=== PATIENT | female | born 1995 | race Caucasian/White ===

== ENCOUNTER 2022-11-21 14:35 | Outpatient (OUT) | payer BC, SELFPAY ==
[2022-11-21 15:12] LABS: Basophils Percent Auto 0.4 % (0.2-2.0); Eosinophils Absolute Auto 0.1 10^3/uL (0.0-0.7); Eosinophils Percent Auto 1.3 % (0.9-7.0); Hematocrit 39.5 % (36.0-48.0); Hemoglobin 12.5 g/dL (12.0-16.0); Immature Granulocytes Abs Auto 0.02 10^3/uL (0.00-0.03); Immature Granulocytes Pct Auto 0.3 % (0.0-0.5); Lymphocytes Absolute Auto 2.8 10^3/uL (1.2-3.8); Lymphocytes Percent Auto 40.1 % (20.5-60.0); Mean Corpuscular HGB Conc 31.6 g/dL (29.9-35.2); Mean Corpuscular Hemoglobin 24.6 pg (26.7-34.0); Mean Corpuscular Volume 77.8 fL (81.0-99.0); Mean Platelet Volume 9.6 fL (9.5-13.5); Monocytes Absolute Auto 0.4 10^3/uL (0.3-0.8); Monocytes Percent Auto 5.5 % (1.7-12.0); Neutrophils Absolute Auto 3.7 10^3/uL (1.4-6.5); Neutrophils Percent Auto 52.4 % (43.0-75.0); Platelet Count 355 10^3/uL (150-450); Red Blood Count 5.08 10^6/uL (4.20-5.40); Red Cell Distribution Width 13.5 % (11.0-15.0); White Blood Count 7.1 10^3/uL (4.0-11.0)
[2022-11-21 15:20] LABS: Estimated Average Glucose 94 mg/dL; Glycohemoglobin A1C 4.9 % (4.5-6.2)
[2022-11-21 15:51] LABS: Free T4 1.11 ng/dL (0.76-1.46)
[2022-11-21 15:54] LABS: HCG Quantitative <1 mIU/mL; Thyroid Stimulating Hormone 1.545 uIU/mL (0.358-3.740)
[2022-11-22 04:08] LABS: DHEA-Sulfate 91.8 ug/dL (84.8-378.0); FSH 7.1 mIU/mL (.); Luteinizing Hormone(LH) 12.9 mIU/mL (.)
[2022-11-27 21:09] LABS: DHEA, Serum 168 ng/dL (31-701)
== END 2022-11-21 14:36 | disposition home or self-care (01) ==
LOC: LAB 14:41
PROVIDERS: Visit Provider Physician Assistant
DX: E28.2 Polycystic ovarian syndrome (principal); Z12.4 Encounter for screening for malignant neoplasm of cervix; Z11.51 Encounter for screening for human papillomavirus (HPV)
CPT/HCPCS: 36415; 82626; 82627; 83001; 83002; 83036; 84439; 84443; 84702; 85025; G0145

== ENCOUNTER 2022-11-21 19:36 | Outpatient (REF) | payer BC, SELFPAY ==
[2022-11-26 10:08] LABS: Age Gdln ACOG Testing Note (.); IGP, rfx Aptima HPV ASCU Note (.)
== END 2022-11-21 19:37 | disposition home or self-care (01) ==
LOC: LAB 19:36
PROVIDERS: Visit Provider Physician Assistant
DX: Z12.4 Encounter for screening for malignant neoplasm of cervix (principal); Z11.51 Encounter for screening for human papillomavirus (HPV)
CPT/HCPCS: G0145

== ENCOUNTER 2022-12-09 10:41 | Outpatient (OUT) | payer BC, SELFPAY ==
--- NOTE | 2022-12-09 10:54 | US_ITS ---
[address] [address] Patient Name: JASMYN ESPAÑA MRN: [id number] date: 1995 Sex: F Assigned Patient Location: US Current Patient Location: US Accession/Order Number: [id number] Exam Date: 12/09/2022 10:56 Report Date: 12/09/2022 12:57 At the request of: DANIEL CABRAL Procedure: US pelvis transvaginal EXAMINATION: US pelvis transvaginal HISTORY: Polycystic Ovarian Syndrome E28.2 COMPARISON: No relevant comparison available. TECHNIQUE: Transabdominal and/or transvaginal sonographic examination was performed as indicated by examination type. FINDINGS: UTERUS: Normal size and appearance of uterine body. Several nabothian cysts within the cervix. Uterus size: 5.9 x 3.4 x 2.3 cm. ENDOMETRIUM: Normal homogeneous appearance. Endometrial thickness: 10 mm RIGHT OVARY: Small ovary without appreciably increased number of follicles. Duplex Doppler demonstrates normal waveform and flow; resistive index 0.4. Ovary size: 1.7 x 1.3 x 1.1 cm LEFT OVARY: Small ovary without appreciably increased number of follicles. Duplex Doppler demonstrates normal waveform and flow; resistive index 0.5. Ovary size: 1.8 x 1.7 x 1.5 cm CUL-DE-SAC: Unremarkable. No significant free fluid. BLADDER: Unremarkable. OTHER: None. US/US pelvis transvaginal IMPRESSION: 1. Small bilateral ovaries without increased number or enlarged follicles. 2. Unremarkable uterus. Electronically authenticated by: SHANICE WASHINGTON Date: 12/09/2022 12:57
== END 2022-12-09 10:42 | disposition home or self-care (01) ==
LOC: US 10:41
PROVIDERS: Visit Provider Physician Assistant
DX: E28.2 Polycystic ovarian syndrome (principal)
CPT/HCPCS: 76830

== ENCOUNTER 2023-05-07 18:23 | Emergency (ER) | payer BC, SELFPAY ==
[2023-05-07 18:37] VITALS: BP 150/87; PULSE 96; RESP 20; TEMP 36.8; O2SAT 97; BMI 41.2
[2023-05-07 19:17] LABS: Internal Control Within Normal Limits; Strep A Antigen Screen Negative
--- NOTE | 2023-05-07 20:43 | ED.URI1 ---
HPI - URI/Sore Throat General Chief Complaint: Upper Respiratory Infection Stated Complaint: Sore Throat Time Seen by Provider: 05/07/23 19:26 Source: patient Limitations: no limitations History of Present Illness HPI Narrative: Patient is a 28-year-old female who presents to the emergency department for a 5-day history of hoarse voice, cough, congestion. She reports some diarrhea but has had no fevers. No vomiting. No sick contacts in the home. She is not concerned for . She has had no difficulty swallowing. No medications taken prior to arrival. Related Data Previous Rx's Medication Instructions Recorded azithromycin 250 mg tablet See Rx Instructions PO .COMPLEX #6 05/07/23 (Zithromax Z-Sunday) tabs [id number]-znibecsgbxzjyol-HB 10 ml PO Q6H PRN cold symptoms 05/07/23 2 mg-30 mg-10 mg/5 mL oral syrup #200 mL (Bromfed DM) Allergies Allergy/AdvReac Type Severity Reaction Status Date / Time Sulfa (Sulfonamide Allergy Severe Verified 05/07/23 18:37 Antibiotics) Review of Systems ROS Constitutional Denies: fever or chills Ears, nose, mouth, and throat Reports: throat pain, hoarseness and nasal congestion Cardiovascular Denies: chest pain Respiratory Reports: cough; Denies: shortness of breath Gastrointestinal Reports: diarrhea; Denies: nausea or vomiting Musculoskeletal Denies: back pain Integumentary/Breast Denies: rash Neurological Denies: headache Hematologic/Lymphatic Denies: easy bruising PFSH PFSH Social History Smoking status: Never smoker Exam Narrative Exam Narrative: Gen.: Awake, alert, in no distress Head: Normocephalic, atraumatic ENT: Moist mucous membranes, bilateral TMs clear. Hoarse voice noted with no pharyngeal erythema, no tonsillar edema or exudate. Uvula midline. Airway widely open and patent. Respiratory: No respiratory distress, lungs clear bilaterally Cardio: Regular rate and rhythm Extremities: Moves extremities equally Psych: Normal mood and affect Neuro: No focal neuro deficit Skin: Warm, dry, intact Constitutional Vital Signs, click to edit/add: Last Vital Signs Temp 98.2 F 05/07/23 18:37 Pulse 96 H 05/07/23 18:37 Resp 20 05/07/23 18:37 BP 150/87 H 05/07/23 18:37 Pulse Ox 97 05/07/23 18:37 O2 Del Method Room Air 05/07/23 18:37 Course Vital Signs Vital signs: Vital Signs Temperature 98.2 F 05/07/23 18:37 Pulse Rate 96 H 05/07/23 18:37 Respiratory Rate 20 05/07/23 18:37 Blood Pressure 150/87 H 05/07/23 18:37 Pulse Oximetry 97 05/07/23 18:37 Oxygen Delivery Method Room Air 05/07/23 18:37 Temperature 98.2 F 05/07/23 18:37 Pulse Rate 96 H 05/07/23 18:37 Respiratory Rate 20 05/07/23 18:37 Blood Pressure 150/87 H 05/07/23 18:37 Pulse Oximetry 97 05/07/23 18:37 Oxygen Delivery Method Room Air 05/07/23 18:37 MDM - URI/Sore Throat MDM Narrative Medical decision making narrative: Patient treated with azithromycin, Bromfed-DM. Decadron given in the ER and the patient is discharged home with upper respiratory instructions. Follow-up with PCP and return to the emergency department if symptoms change or worsen. Medical Records Attestation: I reviewed the patient's medical records. Lab Data Attestation: I reviewed the patient's lab results. Labs: Lab Results 05/07/23 Range/Units 18:44 Streptococcus Screen Negative Discharge Plan Discharge Chief Complaint: Upper Respiratory Infection Clinical Impression: Upper respiratory infection, Laryngitis Patient Disposition: Home, Self-Care Time of Disposition Decision: 20:40 Condition: Good Prescriptions / Home Meds: New azithromycin [Zithromax Z-Sunday] 250 mg tablet See Rx Instructions .ROUTE .COMPLEX Qty: 6 0RF Rx Instructions: For 250 mg dose pack: take 500 mg today (day 1), then 250 mg for 4 days (days 2-5) [id number]-xketypqvx-ZJ [Bromfed DM] 2-30-10 mg/5 mL syrup 10 ml PO Q6H PRN (Reason: cold symptoms) Qty: 200 0RF Instructions: Upper Respiratory Infection (ED) Stand Alone Forms: Portal Instructions Referrals: Physician,Non-Staff, MD [Primary Care Provider] - 1 week Discharge Date/Time: 05/07/23 21:09
[2023-05-07] MEDS: DEXAMETHASONE SOD PHOS 10 MG/ML VIAL PO (21:07)
== END 2023-05-07 21:09 | disposition home or self-care (01) ==
PROVIDERS: Emergency Medicine; Emergency Provider Emergency Medicine
DX: J06.9 Acute upper respiratory infection, unspecified (principal); J04.0 Acute laryngitis
CPT/HCPCS: 87070; 87880; 99283; J1100

== ENCOUNTER 2023-08-08 11:08 | Outpatient (OUT) | payer BC, SELFPAY ==
--- OUTSIDE RECORDS SUMMARY | 2023-08-08 11:12 | XMS_ITS | CCD ---
Author Name Unknown Address [address] [place] [address] Organization [facility] Care Team Providers Care Inserting Operator Name Role Phone Markel White Primary Care Provider [phone] MU PARRA Referring Unavailable MARKEL WHITE Primary Care Unavailable MU PARRA Referring Unavailable MARKEL WHITE Primary Care Unavailable MARKEL WHITE Primary Care Unavailable MARKEL WHITE Primary Care Unavailable MU PARRA Referring Unavailable NALORETTA DARRICK Abelino Admitting Unavailable NAZEANDREA DARRICK I Attending Unavailable MARILYNN WHITESSICA Wilbert Primary Care Unavailable Allergies Allergy Classification Reported Allergen(s) Allergy Type Date of Onset Reaction(s) Facility (6 sources) Lactose (non-medical use) Propensity to adverse reactions to drug 02-20-2015 [place] (6 sources) Sulfonamides (Antibiotic) Propensity to adverse reactions to drug 05-09-2011 [place] Medications Current Medications Medication Drug Class(es) Dates Sig (Normalized) Sig (Original) ethinyl estradiol 0.035 mg / norgestimate 0.25 mg oral tablet (3 sources) Progestin, Estrogen Start: 12-29-2019 take 1 tablet by mouth once daily, then take 0.25-35 tablets by mouth once norgestimate-ethi nyl estradiol (ORTHO-CYCLEN) 0.25-35 MG-MCG per tablet 1 by mouth daily 84 tablet 3 12/29/2019 Active Start: 07-05-2019 take 1 tablet by parth th once daily, then take 0.25-35 tablets by mouth once norgestimate-ethinyl estradiol (MONO-LINYAH) 0.25-35 MG-MCG per tablet Take 1 tablet by mouth daily 84 tablet 1 07/05/2019 Active ibuprofen 600 mg oral tablet (1 source) Nonsteroidal Anti-inflammatory Drug Start: 12-12-2017 take 1 tablet by mouth every six hours as needed for pain ibuprofen (ADVIL;MOTRIN) 600 MG tablet Take 1 tablet by mouth every 6 hours as needed for Pain 30 tablet 0 12/12/2017 Active 1 ml morphine sulfate 2 mg/ml cartridge (2 sources) Opioid Agonist Start: 2022 morphine (PF) injection 2 mg Start: 2022 End: 2022 morphine injection 4 mg ondansetron 4 mg oral tablet (3 sources) Serotonin-3 Receptor Antagonist Start: 03-29-2022 take 1 tablet by mouth every eight hours as needed for nausea ondansetron (ZOFRAN) 4 MG tablet Take 1 tablet by mouth every 8 hours as needed for Nausea or Vomiting 15 tablet 0 03/29/2022 Active Start: 2022 End: 2022 ondansetron (ZOFRAN) injecti on 4 mg piperacillin-tazobactam (ZOS YN) 3,375 mg in dextrose 5 % 50 mL IVPB (mini-bag) (2 sources) Start: 2022 piperacillin-t azobactam (ZOSYN) 3,375 mg in dextrose 5 % 50 mL IVPB (mini-bag) Start: 2022 End: 2022 piperacillin-tazobactam (ZOS YN) 3,375 mg in dextrose 5 % 50 mL IVPB (mini-bag) 1000 ml sodium chloride 9 mg /ml injection (2 sources) Start: 03-29-2022 0.9 % sodium c hloride infusion Start: 2022 End: 2022 0.9 % sodium chloride bolus Completed/Discontinued Medications Medication Drug Class(es) Dates Sig (Normalized) Sig (Original) acetaminophen 325 mg oral tablet (1 source) Start: 03-29-2022 End: 03-29-2022 acetaminophen (TYLENOL) tablet 650 mg acetaminophen 325 mg / HYDROcodone bitartrate 5 mg oral tablet (2 sources) Opioid Agonist Start: 03-29-2022 End: 04-05-2022 take 1 tablet by mouth every four hours as needed 1 tablet, Oral, EVERY 4 HOURS PRN, Starting on Fri03/29/22 at 1820, Until Discontinued, Pain Severe (7-10), Pain Moderate (4-6) Maximum dose of acetaminophen is 4000 mg from all sources in 24 hours. dimenhyDRINATE 50 mg oral tablet (1 source) Start: 03-29-2022 End: 03-29-2022 dimenhyDRINATE (DRAMAMINE) tablet 50 mg docusate sodium 100 mg oral capsule (1 source) Start: 03-29-2022 take 100 mg by mouth once daily 100 mg, Oral, DAILY, First dose on Fri03/29/22 at 1845, Until Discontinued Do not crush or break. iopamidol (ISOVUE-370) 76 % injection 75 mL (1 source) Start: 2022 End: 2022 iopamidol (ISOVUE-370) 76 % injection 75 mL Problems Active Problems Problem Classification Problem Date Documented Date Episodic/Chronic Abdominal pain (8 sources) Right lower quadrant pain; Translations: [Right lower quadrant pain] Onset: 2022 Episodic Appendicitis and other appendiceal conditions (8 sources) Appendicitis; Translations: [Unspecified appendicitis] Onset: 2022 2022 Episodic Cancer of cervix (1 source) Low grade squamous intraepithelial lesion on cervical Papanicolaou smear; Translations: [LGSIL on Pap smear of cervix] Episodic Menstrual disorders (6 sources) Irregular periods; Translations: [Irregular menstruation, unspecified] Onset: 02-13-2018 02-13-2018 Chronic Other nervous system disorders (1 source) Acute postoperative pain; Translations: [Other acute postprocedural pain] Episodic Residual codes; unclassified (1 source) Other general symptoms and signs; Translations: [Suspected COVID-19 virus infection] Episodic Unclassified (1 source) Cancer cervix screening status; Translations: [Cervical cancer screening] Unclassified (1 source) sent by Dr Office because of unsatisfactory test results Onset: 2022 Past or Other Problems Problem Classification Problem Date Documented Da te Episodic/Chronic Viral infection (6 sources) Verruca vulgaris; Translations: [Viral wart, unspecified] Onset: 12-18-2012 Resolved: 02-13-2018 02-13-2018 Episodic Results Test Name Value Interpretation Reference Range Facility Surgical Pathologyon 022 Surgical Pathology (NOTE) -- Diagnosis -- Appendix: - Acute appendicitis. Indio Felder M.D. Electronically Signed Out rdd/04/02/2022 Clinical Information Pre-Op Diagnosis: APPY Operative Findings: APPENDIX Operation Performed: LAPAROSCOPIC APPENDECTOMY Source of Specimen A: APPENDIX Gross Description JASMYN ESPAÑA, APPENDIX 5.5 cm long x 0.8 cm in diameter vermiform appendix with a moderate amount of attached mesoappendix. The serosa is purple-garcia with a fibrinopurulent exudate and the serosa is focally disrupted. Sectioning reveals no fecalith. The lumen contains a small amount of clot. Tip and cross sections with margin inked black 1cs, 2-4 remainder of appendix, no stock. tm Microscopic Description The appendix shows acute inflammation, predominantly mucosal, consisting of aggregates of neutrophils within the lamina propria and intraepithelial neutrophils. There are no crypt abscesses, granulomas, or viral inclusions. There is submucosal and transmural chronic inflammation consisting predominantly of scattered lymphocytes and scattered lymphoid aggregates. The serosa shows organizing fibrinous exudate and the catrachita-appendiceal adipose shows patchy reactive fibrosis. There is no neoplasm. SURGICAL PATHOLOGY CONSULTATION Patient Name: JASMYN ESPAÑA [facility] Rec: [id number] Path Number: [id number] [facility] ANATOMIC PATHOLOGY [address] [place] [id number] [facility] Comment on above: Performed By: #### P PPVS #### [facility] [address] [place], [place] [id number] Manager Retention: Reymundo Ordoñez MD CBC with Auto Differentialon 2022 Absolute Eos # 0.11 [facility] Immature Granulocyte 0.00 [facility] Absolute Lymph # 3.41 [facility] Absolute Dawes # 0.66 [facility] [employer] Basophils (Bld) [#/Vol] 0.11 10*3/uL [facility] Basophils/100 WBC (Bld) 1 % 0 - 2 % [facility] Eosinophils/100 WBC (Bld) 1 % 1 - 4 % [facility] Hematocrit (Bld) [Volume fraction] 45.4 % 36.3 - 47.1 % [facility] Hemoglobin (Bld) [Mass/Vol] 14.3 g/dL 11.9 - 15.1 g/dL [facility] Immature granulocytes/100 WBC (Bld) 0 % 0 [facility] Interpretation and review of laboratory results Abnormal [facility] Lymphocytes/100 WBC (Bld) 31 % 24 - 43 % [facility] MCH (RBC) [Entitic mass] 25.2 pg 25.2 - 33.5 pg [facility] MCHC (RBC) [Mass/Vol] 31.5 g/dL 28.4 - 34.8 g/dL [facility] MCV (RBC) [Entitic vol] 79.9 fL Low 82.6 - 102.[address] [facility] Monocytes/100 WBC (Bld) 6 % 3 - 12 % [facility] Morphology Raji (Bld) [Interp] Platelet scan shows Normal Platelets [facility] NRBC Automated 0.0 0.0 per [address] [facility] Platelet distribution width (Bld) [Ratio] 13.4 % 11.8 - 14.4 % [facility] Platelets (Bld) [#/Vol] See Reflexed IPF Result [facility] RBC (Bld) [#/Vol] 5.68 10*6/uL High 3.95 - 5.1 1 m/uL [facility] Segmented neutrophils/100 WBC (Bld) 61 % 36 - 65 % [facility]s Absolute 6.71 [facility] WBC (Bld) [#/Vol] 11.0 10*3/uL [facility] Absolute Eos # 0.00 [facility] Absolute Lymph # 3.20 [facility] Absolute Dawes # 0.80 [facility] Basophils (Bld) [#/Vol] 0.00 10*3/uL [facility] Basophils/100 WBC (Bld) 0 % 0 - 2 % [facility] Differential Type YES [facility] Eosinophils/100 WBC (Bld) 0 % 0 - 5 % [facility] Hematocrit (Bld) [Volume fraction] 40.7 % 36 - 46 % [facility] Hemoglobin (Bld) [Mass/Vol] 13.3 g/dL 12.0 - 16.0 g/dL [facility] Interpretation and review of laboratory results Abnormal [facility] Lymphocytes/100 WBC (Bld) 25 % 15 - 40 % [facility] MCH (RBC) [Entitic mass] 24.4 pg Low 26 - 34 pg [facility] MCHC (RBC) [Mass/Vol] 32.7 g/dL 31 - 37 g/dL [facility] MCV (RBC) [Entitic vol] 74.5 fL Low 80 - 100 fL [facility] Monocytes/100 WBC (Bld) 6 % 4 - 8 % [facility] Platelet distribution width (Bld) [Ratio] 13.7 % 12.1 - 15.2 % [facility] Platelets (Bld) [#/Vol] 376 10*3/uL [facility] RBC (Bld) [#/Vol] 5.46 10*6/uL High 4.0 - 5.2 m/uL B [facility] Segmented neutrophils/100 WBC (Bld) 69 % 47 - 75 % [facility] Segs Absolute 8.[address] [facility] WBC (Bld) [#/Vol] 12.4 10*3/uL High [facility] CBC with Diffon 2022 Abs. Basophil 0.11 k/uL Normal 0.0-0.2 [facility] Comment on above: Performed By: #### C P, IPF, CDP #### [facility] [address] [place] [address] Manager Retention: Jimmy Sanders MD Abs.Imm.Granulocyte 0.00 k/uL Normal 0.00-0.30 [facility] Comment on above: Performed By: #### C P, IPF, CDP #### [facility] [address] [place] [address] Manager Retention: Jimmy Sanders MD Abs.Neutrophil (Seg) 6.71 k/uL Normal 1.50-8.10 [facility] Comment on above: Performed By: #### C P, IPF, CDP #### [facility] [address] [place], [place] [phone] Manager Retention: Jimmy Sanders MD Basophils/100 WBC (Bld) 1 % Normal 0-2 [facility] Comment on above: Performed By: #### C P, IPF, CDP #### [address] [place], [place] [phone] Manager Retention: Jimmy Sanders MD Eosinophils (Bld) [#/Vol] 0.11 10*3/uL Normal 0.00-0.44 [facility] Comment on above: Performed By: #### C P, IPF, CDP #### [address] [place], [place] [phone] Manager Retention: Jimmy Sanders MD Eosinophils/100 WBC (Bld) 1 % Normal 1-4 [facility] Comment on above: Performed By: #### C P, IPF, CDP #### [address] [place] [address] Manager Retention: Jimmy Sanders MD Immature granulocytes/100 WBC (Bld) 0 % Normal 0 [facility] Comment on above: Performed By: #### C P, IPF, CDP #### [address] [place], [place] [phone] Manager Retention: Jimmy Sanders MD Lymphocytes (Bld) [#/Vol] 3.41 10*3/uL Normal 1.10-3.70 [facility] Comment on above: Performed By: #### C P, IPF, CDP #### [address] [place], [place] [phone] Manager Retention: Jimmy Sanders MD Lymphocytes/100 WBC (Bld) 31 % Normal 24-43 [facility] Comment on above: Performed By: #### C P, IPF, CDP #### [facility] [address] [place], [place] [phone] Manager Retention: Jimmy Sanders MD Monocytes (Bld) [#/Vol] 0.66 10*3/uL Normal 0.10-1.20 [facility] Comment on above: Performed By: #### C P, IPF, CDP #### [facility] [address] [place], [place] [phone] Manager Retention: Jimmy Sanders MD Monocytes/100 WBC (Bld) 6 % Normal 3-12 [facility] Comment on above: Performed By: #### C P, IPF, CDP #### [facility] [address] [place], [place] [phone] Manager Retention: Jimmy Sanders MD Morphology Raji (Bld) [Interp] Platelet scan shows Normal Platelets Normal [facility] Comment on above: Performed By: #### C P, IPF, CDP #### [facility] [address] [place], [place] [phone] Manager Retention: Jimmy Sanders MD Neutrophil (Seg) 61 % Normal 36-65 [facility] Comment on above: Performed By: #### C P, IPF, CDP #### [facility] [address] [place], [place] [phone] Manager Retention: Jimmy Sanders MD Erythrocyte distribution width (RBC) [Ratio] 13.4 % Normal 11.8-14.4 [facility] Comment on above: Performed By: #### C P, IPF, CDP #### [facility] [address] [place], [place] [phone] Manager Retention: Jimmy Sanders MD Hematocrit (Bld) [Volume fraction] 45.4 % Normal 36.3-47.1 [facility] Comment on above: Performed By: #### C P, IPF, CDP #### [facility] [address] [place] [address] Manager Retention: Jimmy Sanders MD Hemoglobin (Bld) [Mass/Vol] 14.3 g/dL Normal 11.9-15.1 [facility] Comment on above: Performed By: #### C P, IPF, CDP #### [facility] [address] [place] [address] Manager Retention: Jimmy Sanders MD MCH (RBC) [Entitic mass] 25.2 pg Normal 25.2-33.5 [facility] Comment on above: Performed By: #### C P, IPF, CDP #### [address] [place] [address] Manager Retention: Jimmy Sanders MD MCHC (RBC) [Mass/Vol] 31.5 g/dL Normal 28.4-34.8 [facility] Comment on above: Performed By: #### C P, IPF, CDP #### [address] [place] [address] Manager Retention: Jimmy Sanders MD MCV (RBC) [Entitic vol] 79.9 fL Low 82.6-102.9 [facility] Comment on above: Performed By: #### C P, IPF, CDP #### [address] [place] [address] Manager Retention: Jimmy Sanders MD NRBC Automated 0.0 per 100 WBC Normal 0.0 [facility] Comment on above: Performed By: #### C P, IPF, CDP #### [facility] [address] [place] [address] Manager Retention: Jimmy Sanders MD Platelet Count See Reflexed IPF Result Normal 138-453 [facility] Comment on above: Performed By: #### C P, IPF, CDP #### [facility] [address] [place], [place] [phone] Manager Retention: Jimmy Sanders MD RBC (Bld) [#/Vol] 5.68 10*6/uL High 3.95-5.11 [facility] Comment on above: Performed By: #### C P, IPF, CDP #### [facility] [address] [place], [place] [phone] Manager Retention: Jimmy Sanders MD WBC (Bld) [#/Vol] 11.0 10*3/uL Normal 3.5-11.3 [facility] Comment on above: Performed By: #### C P, IPF, CDP #### [facility] [address] [place], [place] [phone] Manager Retention: Jimmy Sanders MD Abs. Basophil 0.00 k/uL Normal 0.0-0.2 [facility] Comment on above: Performed By: #### C P, CDP #### [facility] [address] [place] [address] Manager Retention: Jimmy Sanders MD Abs.Neutrophil (Seg) 8.40 k/uL High 2.5-7.0 [facility] Comment on above: Performed By: #### C P, CDP #### [facility] [address] [place] [address] Manager Retention: Jimmy Sanders MD Auto Diff Performed YES Normal [facility] Comment on above: Performed By: #### C P, CDP #### [facility] [address] [place] [address] Manager Retention: Jimmy Sanders MD Basophils/100 WBC (Bld) 0 % Normal 0-2 [facility] Comment on above: Performed By: #### C P, CDP #### [facility] [address] [place] [phone] Manager Retention: Jimmy Sanders MD Eosinophils (Bld) [#/Vol] 0.00 10*3/uL Normal 0.0-0.4 [facility] Comment on above: Performed By: #### C P, CDP #### [facility] [address] [place], [place] [phone] Manager Retention: Jimmy Sanders MD Eosinophils/100 WBC (Bld) 0 % Normal 0-5 [facility] Comment on above: Performed By: #### C P, CDP #### [facility] [address] [place], [place] [phone] Manager Retention: Jimmy Sanders MD Erythrocyte distribution width (RBC) [Ratio] 13.7 % Normal 12.1-15.2 [facility] Comment on above: Performed By: #### C P, CDP #### [facility] [address] [place] [address] Manager Retention: Jimmy Sanders MD Hematocrit (Bld) [Volume fraction] 40.7 % Normal 36-46 [facility] Comment on above: Performed By: #### C P, CDP #### [facility] [address] [place] [address] Manager Retention: Jimmy Sanders MD Hemoglobin (Bld) [Mass/Vol] 13.3 g/dL Normal 12.0-16.0 [facility] Comment on above: Performed By: #### C P, CDP #### [facility] [address] [place] [address] Manager Retention: Jimmy Sanders MD Lymphocytes (Bld) [#/Vol] 3.20 10*3/uL Normal 1.0-4.8 [facility] Comment on above: Performed By: #### C P, CDP #### [facility] [address] [place] [address] Manager Retention: Jimmy Sanders MD Lymphocytes/100 WBC (Bld) 25 % Normal 15-40 [facility] Comment on above: Performed By: #### C P, CDP #### [facility] [address] [place] [address] Manager Retention: Jimmy Sanders MD MCH (RBC) [Entitic mass] 24.4 pg Low 26-34 [facility] Comment on above: Performed By: #### C P, CDP #### [facility] [address] [place] [address] Manager Retention: Jimmy Sanders MD MCHC (RBC) [Mass/Vol] 32.7 g/dL Normal 31-37 [facility] Comment on above: Performed By: #### C P, CDP #### [facility] [address] [place] [address] Manager Retention: Jimmy Sanders MD MCV (RBC) [Entitic vol] 74.5 fL Low 80-100 [facility] Comment on above: Performed By: #### C P, CDP #### [facility] [address] [place] [address] Manager Retention: Jimmy Sanders MD Monocytes (Bld) [#/Vol] 0.80 10*3/uL Normal 0.0-1.0 [facility] Comment on above: Performed By: #### C P, CDP #### [facility] [address] [place] [address] Manager Retention: Jimmy Sanders MD Monocytes/100 WBC (Bld) 6 % Normal 4-8 [facility] Comment on above: Performed By: #### C P, CDP #### [facility] [address] [place] [address] Manager Retention: Jimmy Sanders MD Neutrophil (Seg) 69 % Normal 47-75 [facility] Comment on above: Performed By: #### C P, CDP #### [facility] [address] [place] [address] Manager Retention: Jimmy Sanders MD Platelets (Bld) [#/Vol] 376 10*3/uL Normal 140-450 [facility] Comment on above: Performed By: #### C P, CDP #### [facility] [address] [place] [address] Manager Retention: Jimmy Sanders MD RBC (Bld) [#/Vol] 5.46 10*6/uL High 4.0-5.2 [facility] Comment on above: Performed By: #### C P, CDP #### [facility] [address] [place] [phone] Manager Retention: Jimmy Sanders MD WBC (Bld) [#/Vol] 12.4 10*3/uL High 3.5-11.0 [facility] Comment on above: Performed By: #### C P, CDP #### [facility] [address] [place] [address] Manager Retention: Jimmy Sanders MD [facility] 2022 Albumin [Mass/Vol] 4.5 g/dL 3.5 - 5.2 g/dL [facility] Albumin/Globulin [Mass ratio] 1.2 {ratio} 1.0 - 2.5 [facility] ALP (Bld) [Catalytic activity/Vol] 87 U/L 35 - 104 U/L [facility] ALT [Catalytic activity/Vol] 53 U/L High 5 - 33 U/L [facility] Anion gap [Moles/Vol] 11 mmol/L 9 - 17 mmol/L [facility] AST [Catalytic activity/Vol] 31 U/L NINF - 32 U/L [facility] Bilirubin [Mass/Vol] 0.4 mg/dL 0.3 - 1.2 mg/dL [facility] Calcium [Mass/Vol] 9.1 mg/dL 8.6 - 10. 4 mg/dL [facility] Chloride [Moles/Vol] 100 mmol/L 98 - 107 mmol/L [facility] CO2 [Moles/Vol] 24 mmol/L 20 - 31 mmol/L [facility] Creatinine [Mass/Vol] 0.52 mg/dL 0.50 - 0.90 mg/dL [facility] GFR/1.73 sq M.predicted MDRD (S/P/Bld) [Vol rate/Area] - PINF [facility] Comment on above: Effective Mar 04, 2022 These results are not intended for use in patients <18 years of age. eGFR results are calculated without a race factor using the 2020 CKD-EPI equation. Careful clinical correlation is recommended, particularly when comparing to results calculated using previous equations. The CKD-EPI equation is less accurate in patients with extremes of muscle mass, extra-renal metabolism of creatine, excessive creatine ingestion, or following therapy that affects renal tubular secretion. Glucose [Mass/Vol] 80 mg/dL 70 - 99 mg/dL [facility] Interpretation and review of laboratory results Abnormal [facility] Potassium [Moles/Vol] 3.6 mmol/L Low 3.7 - 5.3 mmol/L [facility] Protein [Mass/Vol] 8.3 g/dL 6.4 - 8.3 g/dL [facility] Sodium [Moles/Vol] 135 mmol/L 135 - 144 mmol/L [facility] Urea nitrogen (BldV) [Mass/Vol] 8 mg/dL 6 - 20 mg/dL [facility] Urea nitrogen/Creatinine (Bld) [Mass ratio] 15 9 - 20 [facility] CT ABDOMEN PELVIS W IV CONTR [place] 2022 CT ABDOMEN PELVIS W IV CONTRAST EXAMINATION: CT ABDOMEN PELVIS W IV CONTRAST, 2022 4:38 PM EDT HISTORY: 27-year-old female with right lower quadrant pain. COMPARISON: None. TECHNIQUE: CT scan of the abdomen and pelvis was performed with IV contrast. CT dose reduction technique was used, including Automated Exposure Control. FINDINGS: PERTINENT POSITIVES: There is a fecalith, 5 mm in the appendix. The appendix is thick walled and diffusely inflamed with periappendiceal fat stranding. This is consistent with acute appendicitis. The appendix is retrocecal in position. PERTINENT NEGATIVES: No free fluid, free air or abscess. COINCIDENTAL FINDINGS: None. ROUTINE EXAMINATION: Normal liver, spleen, pancreas, gallbladder, adrenal glands, kidneys, retroperitoneum, uterus, ovaries and bladder. IMPRESSION: Acute appendicitis. Radiology staff (Lori, RT) will call Dr. Mathis with stat results. Interpreted by: Silvestre Rodriguez Jr., MD Signed by: Silvestre Rodriguez Jr., MD 03/28/22 Final result Normal [facility] CT ABDOMEN PELVIS W IV CONTR AST Additional Contrast? Radiologist Recommendation (IV contrast)on 2022 Acute appendicitis. Radiology staff (Lori, RT) will call Dr. Mathis with stat results. [facility] EXAMINATION: CT ABDOMEN PELVIS W IV CONTRAST, 2022 4:38 PM EDT HISTORY: 27-year-old female with right lower quadrant pain. COMPARISON: None. TECHNIQUE: CT scan of the abdomen and pelvis was performed with IV contrast. CT dose reduction technique was used, including Automated Exposure Control. FINDINGS: PERTINENT POSITIVES: There is a fecalith, 5 mm in the appendix. The appendix is thick walled and diffusely inflamed with periappendiceal fat stranding. This is consistent with acute appendicitis. The appendix is retrocecal in position. PERTINENT NEGATIVES: No free fluid, free air or abscess. COINCIDENTAL FINDINGS: None. ROUTINE EXAMINATION: Normal liver, spleen, pancreas, gallbladder, adrenal glands, kidneys, retroperitoneum, uterus, ovaries and bladder. [facility] [facility] Silvestre Rodriguez Jr., MD - 2022 EXAMINATION: CT ABDOMEN PELVIS W IV CONTRAST, 2022 4:38 PM EDT HISTORY: 27-year-old female with right lower quadrant pain. COMPARISON: None. TECHNIQUE: CT scan of the abdomen and pelvis was performed with IV contrast. CT dose reduction technique was used, including Automated Exposure Control. FINDINGS: PERTINENT POSITIVES: There is a fecalith, 5 mm in the appendix. The appendix is thick walled and diffusely inflamed with periappendiceal fat stranding. This is consistent with acute appendicitis. The appendix is retrocecal in position. PERTINENT NEGATIVES: No free fluid, free air or abscess. COINCIDENTAL FINDINGS: None. ROUTINE EXAMINATION: Normal liver, spleen, pancreas, gallbladder, adrenal glands, kidneys, retroperitoneum, uterus, ovaries and bladder. IMPRESSION: Acute appendicitis. Radiology staff (Lori RT) will call Dr. Mathis with stat results. [facility] [employer] Phone: Radiology Study observation (narrative) [facility] [employer] Phone: CT ABDOMEN PELVIS W IV CONTR AST Additional Contrast? Radiologist Recommendation (IV contrast)Ordered By: Silvestre Rodriguez on 2022 [facility] [employer] Work Phone: Comp Metabolic Profon 2021 Albumin [Mass/Vol] 4.5 g/dL Normal 3.5-5.2 [facility] Comment on above: Performed By: #### C P, IPF, CDP #### [address] [place] [address] Manager Retention: Jimmy Sanders MD Albumin/Glob Ratio 1.2 Normal 1.0-2.5 [facility] Comment on above: Performed By: #### C P, IPF, CDP #### [address] [place] [address] Manager Retention: Jimmy Sanders MD Alkaline Phos 87 U/L Normal 35-104 [facility] Comment on above: Performed By: #### C P, IPF, CDP #### [facility] [address] [place] [address] [place], [place] [phone] Manager Retention: Jimmy Sanders MD ALT [Catalytic activity/Vol] 53 U/L High 5-33 [facility] Comment on above: Performed By: #### C P, IPF, CDP #### [address] [place] [address] Manager Retention: Jimmy Sanders MD Anion gap [Moles/Vol] 11 mmol/L Normal 9-17 [facility] Comment on above: Performed By: #### C P, IPF, CDP #### [facility] [address] [place], [place] [phone] Manager Retention: Jimmy Sanders MD AST [Catalytic activity/Vol] 31 U/L Normal <32 [facility] Comment on above: Performed By: #### C P, IPF, CDP #### [facility] [address] [place], [place] [phone] Manager Retention: Jimmy Sanders MD Bilirubin [Mass/Vol] 0.4 mg/dL Normal 0.3-1.2 [facility] Comment on above: Performed By: #### C P, IPF, CDP #### [address] [place], [place] [phone] Manager Retention: Jimmy Sanders MD BUN/CRE Ratio 15 Normal 9-20 [facility] Comment on above: Performed By: #### C P, IPF, CDP #### [facility] [address] [place], [place] [phone] Manager Retention: Jimmy Sanders MD Calcium [Mass/Vol] 9.1 mg/dL Normal 8.6-10.4 [facility] Comment on above: Performed By: #### C P, IPF, CDP #### [address] [place], [place] [phone] Manager Retention: Jimmy Sanders MD Chloride [Moles/Vol] 100 mmol/L Normal 98-107 [facility] Comment on above: Performed By: #### C P, IPF, CDP #### [facility] [address] [place], [place] [phone] Manager Retention: Jimmy Sanders MD CO2 [Moles/Vol] 24 mmol/L Normal 20-31 [facility] Comment on above: Performed By: #### C P, IPF, CDP #### [facility] [address] [place], [place] [phone] Manager Retention: Jimmy Sanders MD Creatinine [Mass/Vol] 0.52 mg/dL Normal 0.50-0.90 [facility] Comment on above: Performed By: #### C P IPF, CDP #### [facility] [address] [place] [address] Manager Retention: Jimmy Sanders MD GFR/1.73 sq M.predicted among non-blacks MDRD (S/P/Bld) [Vol rate/Area] mL/min/{1.73_m2} Normal >60 [facility] Comment on above: Result Comment: Effective Mar 04, 2022 These results are not intended for use in patients <18 years of age. eGFR results are calculated without a race factor using the 2020 CKD-EPI equation. Careful clinical correlation is recommended, particularly when comparing to results calculated using previous equations. The CKD-EPI equation is less accurate in patients with extremes of muscle mass, extra-renal metabolism of creatine, excessive creatine ingestion, or following therapy that affects renal tubular secretion. Performed By: #### C P IPF, CDP #### [facility] [address] [place] [address] Manager Retention: Jimmy Sanders MD Glucose [Mass/Vol] 80 mg/dL Normal 70-99 [facility] Comment on above: Performed By: #### C P IPF, CDP #### [facility] [address] [place] [address] Manager Retention: Jimmy Sanders MD Potassium [Moles/Vol] 3.6 mmol/L Low 3.7-5.3 [facility] Comment on above: Performed By: #### C P, IPF, CDP #### [facility] [address] [place] [address] Manager Retention: Jimmy Sanders MD Protein [Mass/Vol] 8.3 g/dL Normal 6.4-8.3 [facility] Comment on above: Performed By: #### C P, IPF, CDP #### [facility] [address] [place] [address] Manager Retention: Jimmy Sanders MD Sodium [Moles/Vol] 135 mmol/L Normal 135-144 [facility] Comment on above: Performed By: #### C P, IPF, CDP #### [facility] [address] [place] [address] Manager Retention: Jimmy Sanders MD Urea nitrogen [Mass/Vol] 8 mg/dL Normal 6-20 [facility] Comment on above: Performed By: #### C P, IPF, CDP #### [facility] [address] [place] [address] Manager Retention: Jimmy Sanders MD Albumin [Mass/Vol] 4.3 g/dL Normal 3.5-5.2 [facility] Comment on above: Performed By: #### C P, CDP #### [facility] [address] [place] [address] Manager Retention: Jimmy Sanders MD Alkaline Phos 84 U/L Normal 35-104 [facility] Comment on above: Performed By: #### C P, CDP #### [facility] [address] [place] [address] Manager Retention: Jimmy Sanders MD ALT [Catalytic activity/Vol] 52 U/L High 5-33 [facility] Comment on above: Performed By: #### C P, CDP #### [facility] [address] [place] [address] Manager Retention: Jimmy Sanders MD Anion gap [Moles/Vol] 11 mmol/L Normal 9-17 [facility] Comment on above: Performed By: #### C P, CDP #### [facility] [address] [place] [address] Manager Retention: Jimmy Sanders MD AST [Catalytic activity/Vol] 32 U/L High <32 [facility] Comment on above: Performed By: #### C P, CDP #### [facility] [address], [place] [phone] Manager Retention: Jimmy Sanders MD Bilirubin [Mass/Vol] 0.4 mg/dL Normal 0.30-1.20 [facility] Comment on above: Performed By: #### C P, CDP #### [facility] [address] [place], [place] [phone] Manager Retention: Jimmy Sanders MD BUN/CRE Ratio 15 Normal 9-20 [facility] Comment on above: Performed By: #### C P, CDP #### [facility] [address] [place], [place] [phone] Manager Retention: Jimmy Sanders MD Calcium [Mass/Vol] 9.1 mg/dL Normal 8.6-10.4 [facility] Comment on above: Performed By: #### C P, CDP #### [facility] [address] [place], [place] [phone] Manager Retention: Jimmy Sanders MD Chloride [Moles/Vol] 101 mmol/L Normal 98-107 [facility] Comment on above: Performed By: #### C P, CDP #### [facility] [address] [place] [address] Manager Retention: Jimmy Sanders MD CO2 [Moles/Vol] 26 mmol/L Normal 20-31 [facility] Comment on above: Performed By: #### C P, CDP #### [facility] [address] [place], [place] [phone] Manager Retention: Jimmy Sanders MD Creatinine [Mass/Vol] 0.60 mg/dL Normal 0.50-0.90 [facility] Comment on above: Performed By: #### C P, CDP #### [facility] [address] [place], [place] [phone] Manager Retention: Jimmy Sanders MD GFR/1.73 sq M.predicted among non-blacks MDRD (S/P/Bld) [Vol rate/Area] mL/min/{1.73_m2} Normal >60 [facility] Comment on above: Result Comment: Effective Mar 04, 2022 These results are not intended for use in patients <18 years of age. eGFR results are calculated without a race factor using the 2020 CKD-EPI equation. Careful clinical correlation is recommended, particularly when comparing to results calculated using previous equations. The CKD-EPI equation is less accurate in patients with extremes of muscle mass, extra-renal metabolism of creatine, excessive creatine ingestion, or following therapy that affects renal tubular secretion. Performed By: #### C P, CDP #### [facility] [address] [place] [address] Manager Retention: Jimmy Sanders MD Glucose [Mass/Vol] 90 mg/dL Normal 70-99 [facility] Comment on above: Performed By: #### C P, CDP #### [facility] [address] [place] [address] Manager Retention: Jimmy Sanders MD Potassium [Moles/Vol] 4.1 mmol/L Normal 3.7-5.3 [facility] Comment on above: Performed By: #### C P, CDP #### [facility] [address] [place] [address] Manager Retention: Jimmy Sanders MD Protein [Mass/Vol] 7.9 g/dL Normal 6.4-8.3 [facility] Comment on above: Performed By: #### C P, CDP #### [facility] [address] [place] [address] Manager Retention: Jimmy Sanders MD Sodium [Moles/Vol] 138 mmol/L Normal 135-144 [facility] Comment on above: Performed By: #### C P, CDP #### [facility] [address] [place] [address] Manager Retention: Jimmy Sanders MD Urea nitrogen [Mass/Vol] 9 mg/dL Normal 6-20 [facility] Comment on above: Performed By: #### C P, CDP #### [facility] [address] [place] [address] Manager Retention: Jimmy Sanders MD [facility] Metabolic Pane [facility] 2022 Albumin [Mass/Vol] 4.3 g/dL 3.5 - 5.2 g/dL [facility] ALP (Bld) [Catalytic activity/Vol] 84 U/L 35 - 104 U/L [facility] ALT [Catalytic activity/Vol] 52 U/L High 5 - 33 U/L [facility] Anion gap [Moles/Vol] 11 mmol/L 9 - 17 mmol/L [facility] AST [Catalytic activity/Vol] 32 U/L High NINF - 32 U/L [facility] Bilirubin [Mass/Vol] 0.4 mg/dL 0.30 - 1.20 mg/dL [facility] Calcium [Mass/Vol] 9.1 mg/dL 8.6 - 10. 4 mg/dL [facility] Chloride [Moles/Vol] 101 mmol/L 98 - 107 mmol/L [facility] CO2 [Moles/Vol] 26 mmol/L 20 - 31 mmol/L [facility] Creatinine [Mass/Vol] 0.6 mg/dL 0.50 - 0.90 mg/dL [facility] GFR/1.73 sq M.predicted MDRD (S/P/Bld) [Vol rate/Area] - PINF [facility] Comment on above: Effective Mar 04, 2022 These results are not intended for use in patients <18 years of age. eGFR results are calculated without a race factor using the 2020 CKD-EPI equation. Careful clinical correlation is recommended, particularly when comparing to results calculated using previous equations. The CKD-EPI equation is less accurate in patients with extremes of muscle mass, extra-renal metabolism of creatine, excessive creatine ingestion, or following therapy that affects renal tubular secretion. Glucose [Mass/Vol] 90 mg/dL 70 - 99 mg/dL [facility] Interpretation and review of laboratory results Abnormal [facility] Potassium [Moles/Vol] 4.1 mmol/L 3.7 - 5.3 mmol/L [facility] Protein [Mass/Vol] 7.9 g/dL 6.4 - 8.3 g/dL [facility] Sodium [Moles/Vol] 138 mmol/L 135 - 144 mmol/L [facility] Urea nitrogen (BldV) [Mass/Vol] 9 mg/dL 6 - 20 mg/dL [facility] Urea nitrogen/Creatinine (Bld) [Mass ratio] 15 9 - 20 [facility] HCG, ,Urineon 03-28 Beta HCG ( test) Ql (U) Negative Normal NEG [facility] Comment on above: Result Comment: Spec imens with hCG levels near the threshold of the test (25 mIU/mL) may give a negative or indeterminate result. In such cases, another test should be performed with a new specimen in 48-72 hours. If early is suspected clinically in this setting, correlation with quantitative serum b-hCG level is suggested. [facility] has confirmed the use of plasma for this test. This has not been cleared or approved by the U.S. Food and Drug Administration. The FDA has determined that such clearance is not necessary. Performed By: #### U ZULMA Song [facility] #### [facility] [address] [place] [address] Manager Retention: Jimmy Sanders MD Immature Platelet Fractionon 2022 Platelet, Fluorescence 353 [facility] Platelet, Immature Fraction 2.5 % 1.1 - 10.3 % [facility] Lactic Acidon 2022 Lactate [Moles/Vol] 0.9 mmol/L Normal 0.5-2.2 [facility] Comment on above: Performed By: #### L ACTIC #### [facility] [address] [place] [address] Manager Retention: Jimmy Sanders MD Lactate [Moles/Vol] 0.9 mmol/L 0.5 - 2. 2 mmol/L [facility] Microscopic Urinalysison Bacteria, UA 1+ Abnormal None [facility] Epithelial Cells UA 0 TO 2 [facility] S [facility] Interpretation and review of laboratory results Abnormal [facility] RBC, UA 0 TO 2 [facility] WBC, UA 0 TO 2 [facility] PLT, Immature Fract.on 03-28 Platelet, Fluoresc. 353 k/uL Normal 138-453 [facility] Comment on above: Performed By: #### C P, IPF, CDP #### [facility] [address] [place] [address] Manager Retention: Jimmy Sanders MD PLT, Immature Fract. 2.5 % Normal 1.1-10.3 [facility] Comment on above: Performed By: #### C P, IPF, CDP #### [facility] [address] [place] [address] Manager Retention: Jimmy Sanders MD Urinalysison 2022 Bilirubin Urine Negative NEGATIVE [facility] Color, UA Yellow Yellow [facility] Glucose, Ur Negative NEGATIVE [facility] Interpretation and review of laboratory results Abnormal [facility] Ketones Ql (U) 2+ Abnormal NEGATIVE [facility] Leukocyte esterase Test strip Ql (U) Negative NEGATIVE [facility] Nitrite, Urine Negative NEGATIVE [facility] pH, UA 6.0 5.0 - 9.0 [facility] Protein, UA Negative NEGATIVE [facility] Specific Adams, UA 1.020 1.010 - 1.020 [facility] Turbidity UA Clear Clear [facility] Urine Hgb 2+ Abnormal NEGATIVE [facility] Urobilinogen, Urine ELEVATED Abnormal Normal [facility] Urinalysis, Routineon 2021 Bilirubin, SemiQt,Ur Negative Normal NEG [facility] Comment on above: Performed By: #### U A, STACEYICAO CG #### [facility] [address] [place], [place] [phone] Manager Retention: Jimmy Sanders MD Blood, Urine 2+ Abnormal NEG [facility] Comment on above: Performed By: #### U A, UMICAO UHCG #### [facility] [address] [place], [place] [phone] Manager Retention: Jimmy Sanders MD Clarity (U) Clear Normal CLEAR [facility] Comment on above: Performed By: #### U A, ZULMA CG #### [address] [place], [place] [phone] Manager Retention: Jimmy Sanders MD Color (U) Yellow Normal YEL [facility] Comment on above: Performed By: #### U AZULMA CG #### [facility] [address] [place] [address] [place], [place] [phone] Manager Retention: Jimmy Sanders MD Glucose Ql (U) Negative Normal NEG [facility] Comment on above: Performed By: #### U A, ZULMA CG #### [facility] [address] [place] [address] [place], [place] [phone] Manager Retention: Jimmy Sanders MD Ketones Ql (U) 2+ Abnormal NEG [facility] Comment on above: Performed By: #### U A, UMICAO UHCG #### [facility] [address] [place], [place] [phone] Manager Retention: Jimmy Sanders MD Leukocyte esterase Test strip Ql (U) Negative Normal NEG [facility] Comment on above: Performed By: #### U A, UMICAO UHCG #### [facility] [address] [place] [address] Dr. [place], [place] [phone] Manager Retention: Jimmy Sanders MD Nitrite,Ur Negative Normal NEG [facility] Comment on above: Performed By: #### U ZULMA Song CG #### [facility] [address] [place] [address] [place] [place], [place] [phone] Manager Retention: Jimmy Sanders MD PH,Ur 6.0 Normal 5.0-9.0 [facility] Comment on above: Performed By: #### U ZULMA Song CG #### [facility] [address] [place] [address] Dr. [place], [place] [address] Manager Retention: Jimmy Sanders MD Protein Ql (U) Negative Normal NEG [facility] Comment on above: Performed By: #### ZULMA Whitney CG #### [address] [place], [facility] Manager Retention: Jimmy Sanders MD Spec. Adams,Ur 1.020 Normal 1.010-1.020 [facility] Comment on above: Performed By: #### U ZULMA Song CG #### [address] [place], [place] [address] Manager Retention: Jimmy Sanders MD Urobilinogen,Ur ELEVATED Abnormal NORM [facility] Comment on above: Performed By: #### ZULMA Whitney CG #### [facility] [address] [place] [address] Dr. [place], [place] [address] Manager Retention: Jimmy Sanders MD Urinalysis,Microon 2 Bacteria 1+ Abnormal NONE [facility] Comment on above: Performed By: #### ZULMA Whitney CG #### [facility] [address] [place] [address] Dr. [place] [phone] Manager Retention: Jimmy Sanders MD Epithelial cells LM Ql (Urine sed) 0 TO 2 Normal 0-25 [facility] Comment on above: Performed By: #### U AZULMA UHCG #### [facility] [address] [place] [address] Manager Retention: Jimmy Sanders MD Urine RBC's 0 TO 2 Normal 0-2 [facility] Comment on above: Performed By: #### U A [facility] #### [facility] [address] [place] [address] Manager Retention: Jimmy Sanders MD Urine WBC's 0 TO 2 Normal 0-5 [facility] Comment on above: Performed By: #### U A [facility] #### [facility] [address] [place] [address] Manager Retention: Jimmy Sanders MD Urine Preg (Lab)on 2 Beta HCG ( test) Ql (U) Negative NEGATIVE [facility] Comment on above: Specimens with hCG l evels near the threshold of the test (25 mIU/mL) may give a negative or indeterminate result. In such cases, another test should be performed with a new specimen in 48-72 hours. If early is suspected clinically in this setting, correlation with quantitative serum b-hCG level is suggested. [facility] has confirmed the use of plasma for this test. This has not been cleared or approved by the U.S. Food and Drug Administration. The FDA has determined that such clearance is not necessary. [facility] Vital Signs Date Time Vital Sign Value Performing Clinician Sol diallo 03-29-2022 19:30-0400 Body temperature 98.49 [degF] Johana Castillo MD Work Phone: [facility] 03-29-2022 19:30-0400 Diastolic blood pressure 79 mm[Hg] Johana Castillo MD Work Phone: [facility] 03-29-2022 19:30-0400 Heart rate 98 /min Johana Castillo MD Work Phone: [facility] 03-29-2022 19:30-0400 Respiratory rate 18 /min Johana Castillo MD Work Phone[facility] 03-29-2022 19:30-0400 SaO2% (BldA) [Mass fraction] 94 % Johana Castillo MD Work Phone: [facility] 03-29-2022 19:30-0400 Systolic blood pressure 118 mm[Hg] Johana Castillo MD Work Phone: [facility] 03-29-2022 08:07-0400 Body height 162.6 cm Johana Castillo MD Work Phone: [facility] 03-29-2022 04:16-0400 Body mass index (BMI) [Ratio] 41.5 kg/m2 Johana Castillo MD Work Phone: [facility] 03-29-2022 04:16-0400 Body weight 109.68 kg Johana Castillo MD Work Phone: [facility] Encounters Encounter Date Encounter Type Care Provider Facility Start: 2022 End: 03-29-2022 Emergency department patient visit Johana Castillo MD Work Phone: [facility] Comment on above: Acute appendicitis w ith generalized peritonitis, without abscess, unspecified whether gangrene present, unspecified whether perforation present (Primary Dx); Acute postoperative pain; Appendicitis, unspecified appendicitis type Start: 2022 End: 03-31-2022 ambulatory [facility] Start: 2022 End: 03-30-2022 Subsequent hospital visit by physician Champ Cat Scan Room [facility] Laboratory Comment on above: RLQ abdominal pain RLQ abdominal pain; Abdominal pain, right lower quadrant Start: 02-01-2020 End: 02-01-2020 Subsequent hospital visit by physician [facility] Comment on above: 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 Start: 12-29-2019 End: 12-29-2019 Subsequent hospital visit by physician [facility] Comment on above: Cervical cancer scre ening Start: 09-20-2019 End: 09-20-2019 Subsequent hospital visit by physician Markel [facility] Comment on above: Suspected COVID-19 v irus infection Procedures Date Procedure Procedure Detail Performing Clinician Start: 2022 Urinalysis microscopic only Rodolfo Morillo PA-C Work Phone: Start: 2022 Urnls dip stick/tabl et rgnt auto w/o microscopy Rodolfo Morillo PA-C Work Phone: Start: 2022 Comprehensive metabo lic panel Rodolfo Morillo PA-C Work Phone: Start: 2022 IMMATURE PLATELET FRACTION Rodolfo Morillo PA-C Work Phone: Start: 2022 Ct abdomen & pelvis w/contrast material Mu Parra DO Work Phone: Start: 2022 Comprehensive metabo lic panel Mu Parra DO Work Phone: Start: 12-29-2019 Microscopic observat ion [Identifier] in Cervix by Cyto stain Markel White DO Work Phone: Plan of Treatment Date Care Activity Detail Author Start: 2023 Depression Screen Depression Screen [facility] Start: 12-28-2022 Screening for malign ant neoplasm of cervix [facility] Start: 04-05-2022 End: 04-05-2022 Patient encounter procedure 04/05/2022 Office Visit General Surgery Darrick Mello DO [address] [facility] [address] [place] [phone] [facility] GENERAL SURGERY [facility] Start: 03-29-2022 End: 03-29-2022 APPENDECTOMY LAPAROSCOPIC ROBOTIC APPENDECTOMY LAPAROSCOPIC ROBOTIC Appendicitis, unspecified appendicitis type 03/29/2022 3:33 PM EDT [facility] Start: 12-31-2021 Influenza vaccination Flu vaccine (# 1) [facility] Start: 02-01-[address] [facility] [facility] [place] Start: 01-19-2020 DTaP/Tdap/Td vaccine (7 - Td or Tdap) DTaP/Tdap/Td vaccine (7 - Td or Tdap) [facility] Start: 01-19-2020 DTaP/Tdap/Td vaccine (7 - Td) DTaP/Tdap/Td vaccine (7 - Td) [place], [place] Start: 09-24-2019 End: 09-24-2019 Telemedicine 09/24/2019 [facility] Markel White, DO [address] [place] [address] [facility] Start: 2018 Cervical cancer screen Cervical canc er screen [place], [place] Start: 2018 Screening for malign ant neoplasm of cervix Cervical cancer screen [place], [place] Start: 2015 Hepatitis C screening Hepatitis C sc reen [facility] Start: 2013 Chlamydia screen Chlamydia screen [place], [place] Start: 2013 Screening for Chlamy sara trachomatis Chlamydia screen [place], [place] Start: 2012 HIV screen HIV screen [place], [place] Start: 2012 HIV screening HIV screen [facility] Start: 2008 HPV vaccine (1 - 2-d ose series) HPV vaccine (1 - 2-dose series) [facility] Start: 1998 Varicella vaccine (1 of 2 - 2-dose childhood series) Varicella vaccine (1 of 2 - 2-dose childhood series) [facility] Start: 1997 COVID-19 Vaccine (#1) COVID-19 Vacci ne (#1) [facility] End: 09-20-2019 Covid-19 Ambulatory Covid-19 Ambulatory Lab Routine Suspected Covid-19 Virus Infection 1 Occurrences starting 09/20/2019 until 09/20/2019 [place] Comment on above: 1 Occurrences starti ng 09/20/2019 until 09/20/2019 Covid-19 Ambulatory Covid-19 Amb ulatory Lab Routine Suspected COVID-19 virus infection 09/20/2019 10:05 AM EDT [place] End: 12-29-2019 Cytopathology procedure, preparation of smear, genital source PAP Smear Lab Routine Cervical cancer screening 1 Occurrences starting 12/29/2019 until 12/29/2019 [place] Comment on above: 1 Occurrences starti ng 12/29/2019 until 12/29/2019 End: 02-01-2020 Surgical Pathology Surgical Pathology Lab Routine LGSIL on Pap smear of cervix 1 Occurrences starting 02/01/2020 until 02/01/2020 [place] Comment on above: 1 Occurrences starti ng 02/01/2020 until 02/01/2020 Surgical Pathology Surgical Path ology Lab Routine Appendicitis, unspecified appendicitis type Release Upon Ordering for 1 Occurrences starting 03/29/2022 [email or web address] [facility] [place] Phone: Comment on above: Release Upon Orderin g for 1 Occurrences starting 03/29/2022 End: 03-29-2022 SURGICAL PATHOLOGY REPORT SURGICAL PATHOLOGY REPORT Lab Routine Once for 1 Occurrences starting 03/29/2022 until 03/29/2022 [employer] Phone: Comment on above: Once for 1 Occurrenc es starting 03/29/2022 until 03/29/2022 Immunizations Immunization Date Immunization Notes Care Provider Zina moon 01-18-2010 tetanus toxoid, redu quincy diphtheria toxoid, and acellular pertussis vaccine, adsorbed [facility] 02-16-2003 diphtheria, tetanus toxoids and acellular pertussis vaccine [facility] 02-16-2003 diphtheria, tetanus toxoids and acellular pertussis vaccine, unspecified formulation [facility] [place] 02-16-2003 measles, mumps and rubella virus vaccine [facility] 02-16-2003 poliovirus vaccine, inactivated [facility] 11-01-1998 diphtheria, tetanus toxoids and acellular pertussis vaccine [facility] 11-01-1998 diphtheria, tetanus toxoids and acellular pertussis vaccine, unspecified formulation [facility] [place] 11-01-1998 haemophilus influenz ae type b vaccine, PRP-OMP conjugate [facility] 11-01-1998 measles, mumps and rubella virus vaccine [facility] 11-01-1998 trivalent poliovirus vaccine, live, oral [facility] 1997 diphtheria, tetanus toxoids and acellular pertussis vaccine [facility] 1997 diphtheria, tetanus toxoids and acellular pertussis vaccine, unspecified formulation [facility] [place] 1997 haemophilus influenz ae type b vaccine, PRP-OMP conjugate [facility] 1997 hepatitis B vaccine, pediatric or pediatric/adolescent dosage [facility] 1997 diphtheria, tetanus toxoids and acellular pertussis vaccine [facility] 1997 diphtheria, tetanus toxoids and acellular pertussis vaccine, unspecified formulation [facility] [place] 1997 haemophilus influenz ae type b vaccine, PRP-OMP conjugate [facility] 1997 poliovirus vaccine, inactivated [facility] 1997 diphtheria, tetanus toxoids and acellular pertussis vaccine [facility] 1997 diphtheria, tetanus toxoids and acellular pertussis vaccine, unspecified formulation [facility] [place] 1997 haemophilus influenz ae type b vaccine, PRP-OMP conjugate [facility] 1997 poliovirus vaccine, inactivated [facility] 1997 hepatitis B vaccine, pediatric or pediatric/adolescent dosage [facility] 1997 hepatitis B vaccine, pediatric or pediatric/adolescent dosage [facility] Payers Date Payer Category Payer Unknown [id number] 2019 Private Health Insurance [facility] [id number] 2019-Present [phone] [address] [place] [address] [id number] 2019 Private Health Insurance [facility] [id number] 2019-Present [phone] [address] [place] [address] [id number] 2015 Private Health Insurance [facility] OPT[facility] xxxxxxxxx 2015-Present [phone] [address] [place] [address] xxxxxxxxx [id number] 1997 Unknown [id number] 1997 Unknown [id number] 1997 Unknown [id number] 1997 Unknown [id number] 1997 Unknown [id number] Social History Date Type Detail Facility Start: 09-20-2019 End: 2022 Tobacco smoking status [facility] Never smoker [facility] Start: 09-20-2019 End: 03-29-2022 Alcohol intake Current non-drinker of alcohol (finding) [facility] Start: 1997 Sex Assigned At Not [facility] file [facility] [place] [place] Exposure to SARS-CoV -2 (event) [facility] Start: 12-29-2019 End: 2022 Tobacco use and exposure [facility] Start: 2022 History SDOH Alcohol Frequency 1 [employer] Phone: Start: 2022 History SDOH Alcohol Std Drinks 0 [employer] Phone: Start: 2022 History SDOH Financial 5 [employer] Phone: Start: 03-18-2022 End: 2022 Exposure to SARS-CoV-2 (event) Not sure [facility] [employer] History of Present illness Narrative 03-29-2022 Deysi Leahy RN - 03/29/2022 9:30 PM Vargas Leahy RN - 03/29/2022 6:30 PM Blaine Tran RN - 03/29/2022 6:02 PM Vargas Leahy RN - 03/29/2022 6:00 PM EDT Note Date & Type Note Facility 03-29-2022 History of Present illness Narrative Discharge instructions gone over with patient at this time. All questions answered. Patient wheeled to [facility] at this time. Supervisor Winding Department at bedside at this time to perform initial shift assessment. Patient is lying in bed at this time with family by her side. Vital signs taken and assessment completed at this time. Patient is alert and oriented x4 and has no complaints of pain at this time. Patient denies any further needs at this time. Call light within reach, will continue to monitor. Pt transferred back to room on [facility] via bed and report given to Deysi JUNG. Patient transferred from OR to Room 316 at this time. Discharge Criteria Inpatients must meet Criteria 1 through 7. All other patients are either YES or N/A. If a NO is chosen then Anesthesia or Surgeon must be notified. 1. Minimum 30 minutes after last dose of sedative medication, minimum 120 minutes after last dose of reversal agent. Yes 2. Systolic BP stable within 20 mmHg for 30 minutes & systolic BP between 90 & 180 or within 10 mmHg of baseline. Yes 3. Pulse between 60 and 100 or within 10 bpm of baseline. Yes 4. Spontaneous respiratory rate >/= 10 per minute. Yes 5. SaO2 >/= 95 or >/= baseline. Yes 6. Able to cough and swallow or return to baseline function. Yes 7. Alert and oriented or return to baseline mental status. Yes 8. Demonstrates controlled, coordinated movements, ambulates with steady gait, or return to baseline activity function. N/A 9. Minimal or no pain or nausea, or at a level tolerable and acceptable to patient. Yes 10. Takes and retains oral fluids as allowed. N/A 11. Procedural / perioperative site stable. Minimal or no bleeding. Yes 12. If GI endoscopy procedure, minimal or no abdominal distention or passing flatus. N/A 13. Written discharge instructions and emergency telephone number provided. N/A 14. Accompanied by a responsible adult. N/A Nutrition Assessment Type and Reason for Visit: Initial Nutrition Recommendations/Plan: Advance diet as surgically feasible. Malnutrition Assessment: Malnutrition Status: No malnutrition Nutrition Assessment: Predicted suboptimal nutrient intakes r/t altered GI status, AEB pending appy and decreased PO acutely. Expect routine diet progression post op. Nutrition Related Findings: obese Wound Type: None Current Nutrition Therapies: Diet NPO Anthropometric Measures: Height: 5' 4 (162.6 cm) Current Body Wt: 241 lb 12.8 oz (109.7 kg) BMI: 41.5 Nutrition Diagnosis: Predicted inadequate energy intake related to altered GI function as evidenced by NPO or clear liquid status due to medical condition Lab Results Component Value Date NA 135 2022 K 3.6 (L) 2022 CL 100 2022 CO2 24 2022 BUN 8 2022 CREATININE 0.52 2022 GLUCOSE 80 2022 CALCIUM 9.1 2022 PROT 8.3 2022 LABALBU 4.5 2022 BILITOT 0.4 2022 ALKPHOS 87 2022 AST 31 2022 ALT 53 (H) 2022 LABGLOM >60 2022 Hemoglobin A1C Date Value Ref Range Status 11/13/2017 5.1 4.8 - 5.9 % Final No results found for: VITD25 Nutrition Interventions: Food and/or Nutrient Delivery: Start Oral Diet Nutrition Education/Counseling: No recommendation at this time Coordination of Nutrition Care: Continue to monitor while inpatient Plan of Care discussed with: no one Goals: Goals: Meet at least 75% of estimated needs Nutrition Monitoring and Evaluation: Behavioral-Environmental Outcomes: None Identified Food/Nutrient Intake Outcomes: Food and Nutrient Intake, Diet Advancement/Tolerance Physical Signs/Symptoms Outcomes: Biochemical Data, Weight Discharge Planning: No discharge needs at this time Yun[address], [place] Contact: [phone] Pt. Is resting in bed at this time. Pt. Verbalizes comfort. Pt. States she only has tendrness with ambulation. RN assessed vitals at this time. Pt. Vitals are stable. Paperchecklist and Epic checklist completed at this time. Patient awoke for vitals/assessment and antibiotics. Patient has been fast asleep most of all the night. Patient denies any pain at this time rating 0/10 pain. Second assessment completed at this time. Assessment unchanged from previous shift assessment. Vital signs completed. Antibiotic hung. Patient denies any other needs at this time. Call light, bedside table and personal belongings within reach. Patient is resting comfortably in bed with eyes closed at this time Respirations >14. Patient educated on surgery. Patient educated on need to remove jewelry and eye contact prior to going down for surgery. Specimen cup given to keep jewelry in. Patient put into hospital gown. Towels and wash rags placed at sink as well as chlorhexidine soap. Supervisor Winding Department educated patient on need for chlorhexidine surgical wash prior to going down for surgery. Patient is comfortable in bed and denies any needs. Patient and mother deny any further questions at this time. Vital signs and assessment completed and charted. Navigator complete. Patient educated extrusion manager light, bed, lights, and room. Supervisor Winding Department gone over plan of care with patient. Patient aware of NPO status. Mouth moisturizer spray given to patient if needed. Patient, mother and fiance aware of unknown time for surgery tomorrow as of right now; will update patient of time if web content writer finds out at any time. Patient is alert and orientated. Patient is stable on feet and capable of moving about in the room independently. Patient encouraged to call out if patient is feeling lightheadness, unsteady or is in need of any assistance. Urine hat placed into toilet. Patient arrived to [facility], room 316, at this time via wheelchair. Patient independently ambulated from wheelchair to bed. Patient is alert and orientated and on room air. Weight was obtained. Patient arrived in personal clothes will have patient put on hospital gown. documented in this encounter [employer] Phone: Hospital Discharge instructions 03-29-2022 Discharge Instructions Note Date & Type Note Facility 03-29-2022 Hospital Discharg e instructions Darrick Mello, - 03/29/2022 3:44 PM EDT POSTOP INSTRUCTIONS FOR APPENDIX REMOVAL: Ok to walk around as much as you want and climb stairs. No lifting more than 15 pounds for 1 week. You have small skin bonnie. Ok to remove trhe bandaids in 24 hours, ok to shower over the bonnie, ok to leave open to air or place new bandaids. It is normal to get redness around the bonnie. Ok to shower in 24 hours. Ice pack to incisions 2-3 times a day for 10-15 minutes at a time NEEDED - your incisions will be bruised and swollen and feel lumpy and hard this is normal for about 2-3 weeks. No soaking in a tub bath or pool. No driving for at least 4-5 days, or if still needing to take pain medications. Ok to lay on your belly, or sides, any position is fine. Expect some blood tinged drainage from incisions for a day or so. You may feel upper shoulder/back pain from the residual air in the belly from surgery. The more you walk around and take some deep breaths, the faster it will be absorbed. Take tylenol or motrin for milder pain. MUST avoid constipation. Take a stool softener as needed. If no bowel movement in 2-3 days, take a whole glass bottle of Magnesium Citrate over the counter, take as directed. Ok to take other laxative such as Miralax if you want or need. Call office or go to ER if fevers over 101, severe shortness of breath, uncontrolled nausea or vomiting. documented in this encounter [employer] Phone: Evaluation note Note Date & Type Note Facility Evaluation note Diagnosis RLQ abdominal pain Abdominal pain, right lower quadrant documented in this encounter [employer] Phone: Evaluation note Note Date & Type Note Facility Evaluation note Diagnosis Acute appendicitis with generalized peritonitis, without abscess, unspecified whether gangrene present, unspecified whether perforation present Acute postoperative pain Other acute postoperative pain Appendicitis, unspecified appendicitis type Acute appendicitis Acute appendicitis without mention of peritonitis documented in this encounter [employer] Phone: Evaluation note Note Date & Type Note Facility Evaluation note Diagnosis RLQ abdominal pain Abdominal pain, right lower quadrant Abdominal pain, right lower quadrant documented in this encounter [employer] Phone: Assessments Diagnosis Suspected COVID-19 virus infection Diagnosis Cervical cancer screening Screening for malignant neoplasm of the cervix Diagnosis LGSIL on Pap smear of cervix Advance Directives No Advanced Directives Records FoundDocuments on File Type Date Recorded Patient Automotive Fleet Supervisor Expl anation Advance Directives and Living Will Power of Assistant Clinical Nurse Manager Documents on File Type Date Recorded Patient Automotive Fleet Supervisor Expl anation ACP-Advance Directive ACP-Power of Assistant Clinical Nurse Manager Latest Code Status on File Code Status Date Activated Date Inactivated Comments Full Code 03/29/2022 12:41 PM Latest Code Status on File Code Status Date Activated Date Inactivated Comments Full Code 03/29/2022 12:41 PM 03/29/2022 11:36 PM Reason for Referral Specialty Diagnoses / Procedures Referred By Conthumza t Referred To Contact Radiology Diagnoses RLQ abdominal pain Abdominal pain, right lower quadrant Procedures CT ABDOMEN PELVIS W IV CONTRAST Additional Contrast? Radiologist Recommendation (IV contrast) Mu Parra DO [address] [place] [address] Referral ID Status Reason Start Date Expiration Date Visits Re quested Visits Authorized [id number] Closed 2022 05/26/2022 1 1 Summary Purpose Family History No Family History Records FoundNo Family History Records Found Additional Source Comments Care Teams (unrecognized sec tion and content) Inserting Operator Relationship Specialty Start Date End Date Markel White, DO [address] [place] [address] PCP - General Family Medicine 11/13/17 Inserting Operator Relationship Specialty Start Date End Date Markel White, DO [address] [place] [address] PCP - General Family Medicine 11/13/17 Inserting Operator Relationship Specialty Start Date End Date Markel White, DO [address] [place] [address] PCP - General Family Medicine 11/13/17 Reason for Visit (unrecogniz ed section and content) Reason Comments Abdominal Pain Started having RLQ a bd pain Friday night. CT done by pcp earlier today and showed appendicitis. Pt states she is nauseous but denies vomiting. Specialty Diagnoses / Procedures Referred By Contac t Referred To Contact Diagnoses Appendicitis Acute appendicitis with generalized peritonitis, without abscess, unspecified whether gangrene present, unspecified whether perforation present Darrick Mello DO [address] [address] [facility] [address] [place] [address] Referral ID Status Reason Start Date Expiration Date Visits Re quested Visits Authorized [id number] 1 1 Specialty Diagnoses / Procedures Referred By Contac t Referred To Contact Radiology Diagnoses RLQ abdominal pain Abdominal pain, right lower quadrant Procedures CT ABDOMEN PELVIS W IV CONTRAST Additional Contrast? Radiologist Recommendation (IV contrast) Mu Parra, DO [address] [place] [address] Referral ID Status Reason Start Date Expiration Date Visits Re quested Visits Authorized [id number] Closed 2022 05/26/2022 1 1 Ordered Prescriptions (unrec ognized section and content) Prescription Sig Dispensed Refills Start Date End Da te ondansetron (ZOFRAN) 4 MG tablet Take 1 tablet by mouth every 8 hours as needed for Nausea or Vomiting 15 tablet 0 03/29/2022 HYDROcodone-acetaminophe n (NORCO) 5-325 MG per tabletIndications:Acute postoperative pain Take 1 tablet by mouth every 4-6 hours as needed for Pain for up to 7 days. Intended supply: 3 days. Take lowest dose possible to manage pain 18 tablet 0 03/29/2022 04/05/2022 Scheduled Active and Recently Administ ered Medications (unrecognized section and content) Medication Order 03/27/2022 2022 03/29/2022 0.9 % sodium chloride bolus (COMPLETED) 1,000 mL (9.26 mL/kg), IntraVENous, at 495.9 mL/hr, Administer over 121 Minutes, ONCE, On Mayra 03/28/22 at 1900, For 1 dose, For adult patients weighing > 55 kg (120 lbs.) and less than <50 years of age initiate 0.9NS at 500 mL/ hr. All bolus orders are to be given over 10 to 15 minutes 1922 (New Bag - Provider: Jyothi Magana RN)2121 (Stopped - Provider: Vanita Camarena RN) acetaminophen (TYLENOL) tablet 650 mg (COMPLETED) 650 mg, Oral, ONCE, 1 dose, On Fri03/29/22 at 1500, Maximum dose of acetaminophen is 4000 mg from all sources in 24 hours., Pre-op (day of surgery) 1501 (Given - Provid er: Quita Chase RN) dimenhyDRINATE (DRAMAMINE) tablet 50 mg (COMPLETED) 50 mg, Oral, ONCE, 1 dose, On Fri03/29/22 at 1500, Pre-op (day of surgery) 1501 (Given - Provid er: Quita Chase RN) docusate sodium (COLACE) capsule 100 mg 100 mg, Oral, DAILY, First dose on Fri03/29/22 at 1845, Until Discontinued, Do not crush or break. 1930 (Given - Provid er: Deysi Leahy RN) morphine injection 4 mg (COMPLETED) 4 mg, IntraVENous, ONCE, 1 dose, On Mayra 03/28/22 at 1900, If oral and IV narcotics ordered, use oral first and only use IV if oral is ineffective or cannot take oral. Do Not give oral and IV within 1 hour of each other unless specifically ordered. 192 (Given - Provider: Jyothi Magana RN) ondansetron (ZOFRAN) injection 4 mg (COMPLETED) 4 mg, IntraVENous, ONCE, 1 dose, On Mayra 03/28/22 at 1900 1921 (Given - Provider: Jyothi Magana RN) piperacillin-tazobactam (ZOSYN) 3,375 mg in dextrose 5 % 50 mL IVPB (mini-bag) (COMPLETED) 3,375 mg, IntraVENous, ONCE, 1 dose, On Mayra 03/28/22 at 1900, Antimicrobial Indications: Other, Other Abx Indication: Appendicitis 1922 (New Bag - Provider: Jyothi Magana RN)1952 (Stopped - Provider: Jyothi Magana RN) piperacillin-tazobactam (ZOSYN) 3,375 mg in dextrose 5 % 50 mL IVPB (mini-bag) 3,375 mg, IntraVENous, at 100 mL/hr, Administer over 30 Minutes, EVERY 8 HOURS, First dose on Mayra 03/28/22 at 1945 2122 (Not Given - Provider: Vanita Camarena RN - Reason: Other - Comment: already given in ER) 0415 (New Bag - Provider: Vanita Camarena RN)0446 (Stopped - Provider: Vanita Camarena RN)1219 (New Bag - Provider: Robyn Marquez RN)1312 (Stopped - Provider: Robyn Marquez RN)1418 (JUL Hold - Provider: Cora Autohold - Reason: Unreviewed Transfer Orders)1820 (MAR Unhold - Provider: Deysi Leahy RN)1928 (New Bag - Provider: Deysi Leahy RN)195 (Stopped - Provider: Deysi Leahy RN) Continuous Medication Order 03/27/2022 2022 03/29/2022 0.9 % sodium chloride infusion IntraVENous, at 100 mL/hr, CONTINUOUS, Starting on Fri03/29/22 at 1000 1027 (New Bag - Prov ider: Kirstin Clements RN)1418 (JUL Hold - Provider: Cora Autohold - Reason: Unreviewed Transfer Orders)1819 (MAR Unhold - Provider: Deysi Leahy, FABIANA)2040 (Stopped - Provider: Deysi Leahy RN) PRN Medication Order 03/27/2022 2022 03/29/2022 bupivacaine-EPINEPHrine PF (MARCAINE-w/EPINEPHRINE) 0.5% -[id number] injection (CANCELED) PRN, Starting on Fri03/29/22 at 1650, Until Fri03/29/22 at 1700, Intra-op 1650 (Given - Provid er: Drarick Mello DO) HYDROcodone-acetaminophen (NORCO) 5-325 MG per tablet 1 tablet 1 tablet, Oral, EVERY 4 HOURS PRN, Starting on Fri03/29/22 at 1820, Until Discontinued, Pain Severe (7-10), Pain Moderate (4-6), Maximum dose of acetaminophen is 4000 mg from all sources in 24 hours. morphine (PF) injection 2 mg 2 mg, IntraVENous, EVERY 3 HOURS PRN, Starting on Mayra 03/28/22 at 1943, Until Discontinued, Pain Severe (7-10), Pain Moderate (4-6), If oral and IV narcotics ordered, use oral first and only use IV if oral is ineffective or cannot take oral. Do Not give oral and IV within 1 hour of each other unless specifically ordered. 1418 (JUL Hold - Pro vider: Mar Autohold - Reason: Unreviewed Transfer Orders)1819 (JUL Unhold - Provider: Deysi Leahy RN) ondansetron (ZOFRAN) injection 4 mg 4 mg, IntraVENous, EVERY 6 HOURS PRN, Starting on Mayra 03/28/22 at 1943, Until Discontinued, Nausea, Vomiting 1418 (JUL Hold - Pro vider: Mar Autohold - Reason: Unreviewed Transfer Orders)1819 ([facility] Unhold - Provider: Deysi Leahy RN) INFORMATION SOURCE (unrecogn ized section and content) DATE CREATED AUTHOR 03/31/2022 Jie vences DATE CREATED AUTHOR AUTHOR'S ORGANIZ ATION 04/11/2022 Jie ramos FOR RECORDS PERTAINING TO PATIENTS WHO ARE OR HAVE BEEN ENROLLED IN A CHEMICAL DEPENDENCY/SUBSTANCEABUSE PROGRAM, SOME INFORMATION MAY BE OMITTED. This clinical summary was aggregated from multiple sources. Caution should be exercised in using it in the provision of clinical care. This summary normalizes information from multiple sources, and as a consequence, information in this document may materially change the coding, format and clinical context of patient data. In addition, data may be omitted in some cases. CLINICAL DECISIONS SHOULD BE BASED ON THE PRIMARY CLINICAL RECORDS. [facility] [employer] [facility]. provides no warranty or guarantee of the accuracy or completeness of information in this document.
[2023-08-09 04:07] LABS: Progesterone <0.1 ng/mL (.)
== END 2023-08-08 11:09 | disposition home or self-care (01) ==
LOC: LAB 11:09
PROVIDERS: Visit Provider Obstetrics & Gynecology
DX: E28.2 Polycystic ovarian syndrome (principal)
CPT/HCPCS: 36415; 84144

== ENCOUNTER 2023-09-25 16:03 | Outpatient (OUT) | payer BC, SELFPAY ==
--- OUTSIDE RECORDS SUMMARY | 2023-09-25 16:29 | XMS_ITS | CCD ---
Author Organization [facility] Care Team Providers Care Bed Spring Maker Name Role Phone Markel White Primary Care Provider MU PARRA Referring Unavailable MARKEL WHITE Primary Care Unavailable MU PARRA Referring Unavailable MARKEL WHITE Primary Care Unavailable MARKEL WHITE Primary Care Unavailable MARKEL WHITE Primary Care Unavailable MU PARRA Referring Unavailable NAZEANDREA, DARRICK I Admitting Unavailable NAZEMI, DARRICK I Attending Unavailable MARKEL WHITE Primary Care Unavailable Allergies Allergy Classification Reported Allergen(s) Allergy Type Date of Onset Reaction(s) Facility (6 sources) Lactose (non-medical use) Propensity to adverse reactions to drug 02-20-2015 [place], [place] (6 sources) Sulfonamides (Antibiotic) Propensity to adverse reactions to drug 05-09-2011 [place], [place] Medications Current Medications Medication Drug Class(es) [...] Value Interpretation Reference Range Facility Surgical Pathologyon Surgical Pathology (NOTE) -- Diagnosis -- Appendix: [...] PATHOLOGY CONSULTATION Patient Name: JASMYN ESPAÑA [facility] Rec: [id number] Path Number: [id number] [facility] ANATOMIC PATHOLOGY [address] [place] [id number] [facility] Comment on above: Performed By: #### P PPVS #### [employer] [address] [place] [id number] Desizing Machine Operator Head End: Reymundo Ordoñez MD CBC with Auto Differentialon 2022 Absolute Eos # 0.11 [facility] Absolute Immature Granulocyte 0.00 [facility] Absolute Lymph # 3.41 [facility] Absolute [place] # 0.66 [facility] Basophils (Bld) [#/Vol] 0.11 10*3/uL [facility] Basophils/100 WBC (Bld) 1 % 0 - 2 % [facility] Eosinophils/100 WBC (Bld) 1 % 1 - 4 % [facility] Hematocrit (Bld) [Volume fraction] 45.4 % 36.3 - 47.1 % [facility] Hemoglobin (Bld) [Mass/Vol] 14.3 g/dL 11.9 - 15.1 g/dL [facility] Immature granulocytes/100 WBC (Bld) 0 % 0 [facility] Interpretation and review of laboratory results Abnormal [facility] Lymphocytes/100 WBC (Bld) 31 % 24 - 43 % [facility] MCH (RBC) [Entitic mass] 25.2 pg 25.2 - 33.5 pg [facility] MCHC (RBC) [Mass/Vol] 31.5 g/dL 28.4 - 34.8 g/dL [facility] MCV (RBC) [Entitic vol] 79.9 fL Low 82.6 - 102.9 fL [facility] Monocytes/100 WBC (Bld) 6 % 3 - 12 % [facility] Morphology Raji (Bld) [Interp] Platelet scan shows Normal Platelets [facility] NRBC Automated 0.0 0.0 per 100 WBC [facility] Platelet distribution width (Bld) [Ratio] 13.4 % 11.8 - 14.4 % [facility] Platelets (Bld) [#/Vol] See Reflexed IPF Result [facility] RBC (Bld) [#/Vol] 5.68 10*6/uL High 3.95 - 5.1 1 m/uL [facility] Segmented neutrophils/100 WBC (Bld) 61 % 36 - 65 % [facility] Segs Absolute 6.71 [facility] WBC (Bld) [#/Vol] 11.0 10*3/uL [facility] Absolute Eos # 0.00 [facility] Absolute Lymph # 3.20 [facility] Absolute [place] # 0.80 [facility] Basophils (Bld) [#/Vol] 0.00 10*3/uL [facility] Basophils/100 WBC (Bld) 0 % 0 - 2 % [facility] Differential Type YES [facility] Eosinophils/100 WBC (Bld) 0 % 0 - 5 % [facility] Hematocrit (Bld) [Volume fraction] 40.7 % 36 - 46 % [facility] Hemoglobin (Bld) [Mass/Vol] 13.3 g/dL 12.0 - 16.0 g/dL [facility] Interpretation and review of laboratory results Abnormal [facility] Lymphocytes/100 WBC (Bld) 25 % 15 - 40 % [facility] MCH (RBC) [Entitic mass] 24.4 pg Low 26 - 34 pg [facility] MCHC (RBC) [Mass/Vol] 32.7 g/dL 31 - 37 g/dL [facility] MCV (RBC) [Entitic vol] 74.5 fL Low 80 - 100 fL [facility] Monocytes/100 WBC (Bld) 6 % 4 - 8 % [facility] Platelet distribution width (Bld) [Ratio] 13.7 % 12.1 - 15.2 % [facility] Platelets (Bld) [#/Vol] 376 10*3/uL [facility] RBC (Bld) [#/Vol] 5.46 10*6/uL High 4.0 - 5.2 m/uL B [facility] Segmented neutrophils/100 WBC (Bld) 69 % 47 - 75 % [facility] Segs Absolute 8.40 High [facility] WBC (Bld) [#/Vol] 12.4 10*3/uL High [facility] CBC with Diffon 2022 Abs. Basophil 0.11 k/uL Normal 0.0-0.2 [facility] Comment on above: Performed By: #### C P, IPF, CDP #### [facility] [address] [place] [address] Desizing Machine Operator Head End: Jimmy Sanders MD Abs.Imm.Granulocyte 0.00 k/uL Normal 0.00-0.30 [facility] Comment on above: Performed By: #### C P, IPF, CDP #### [facility] [address] [place] [address] Desizing Machine Operator Head End: Jimmy Sanders MD Abs.Neutrophil (Seg) 6.71 k/uL Normal 1.50-8.10 [facility] Comment on above: Performed By: #### C P, IPF, CDP #### [facility] [address] [place] [address] Desizing Machine Operator Head End: Jimmy Sanders MD Basophils/100 WBC (Bld) 1 % Normal 0-2 [facility] Comment on above: Performed By: #### C P, IPF, CDP #### [facility] [address] [place], [place] [phone] Desizing Machine Operator Head End: Jimmy Sanders MD Eosinophils (Bld) [#/Vol] 0.11 10*3/uL Normal 0.00-0.44 [facility] Comment on above: Performed By: #### C P, IPF, CDP #### [address] [place], [place] [id number] Desizing Machine Operator Head End: Jimmy Sanders MD Eosinophils/100 WBC (Bld) 1 % Normal 1-4 [facility] Comment on above: Performed By: #### C P, IPF, CDP #### [address] [place], [place] [id number] Desizing Machine Operator Head End: Jimmy Sanders MD Immature granulocytes/100 WBC (Bld) 0 % Normal 0 [facility] Comment on above: Performed By: #### C P, IPF, CDP #### [address] [place], [place] [id number] Desizing Machine Operator Head End: Jimmy Sanders MD Lymphocytes (Bld) [#/Vol] 3.41 10*3/uL Normal 1.10-3.70 [facility] Comment on above: Performed By: #### C P, IPF, CDP #### [address] [place], [place] [phone] Desizing Machine Operator Head End: Jimmy Sanders MD Lymphocytes/100 WBC (Bld) 31 % Normal 24-43 [facility] Comment on above: Performed By: #### C P, IPF, CDP #### [facility] [address] [place], [place] [phone] Desizing Machine Operator Head End: Jimmy Sanders MD Monocytes (Bld) [#/Vol] 0.66 10*3/uL Normal 0.10-1.20 [facility] Comment on above: Performed By: #### C P, IPF, CDP #### [facility] [address] [place], [place] [phone] Desizing Machine Operator Head End: Jimmy Sanders MD Monocytes/100 WBC (Bld) 6 % Normal 3-12 [facility] Comment on above: Performed By: #### C P, IPF, CDP #### [facility] [address] [place] [address] Desizing Machine Operator Head End: Jimmy Sanders MD Morphology Raji (Bld) [Interp] Platelet scan shows Normal Platelets Normal [facility] Comment on above: Performed By: #### C P, IPF, CDP #### [facility] [address] [place], [place] [phone] Desizing Machine Operator Head End: Jimmy Sanders MD Neutrophil (Seg) 61 % Normal 36-65 [facility] Comment on above: Performed By: #### C P, IPF, CDP #### [facility] [address] [place], [place] 1962183 Desizing Machine Operator Head End: Jimmy Sanders MD Erythrocyte distribution width (RBC) [Ratio] 13.4 % Normal 11.8-14.4 [facility] Comment on above: Performed By: #### C P, IPF, CDP #### [facility] [address] [place], [place] [id number] Desizing Machine Operator Head End: Jimmy Sanders MD Hematocrit (Bld) [Volume fraction] 45.4 % Normal 36.3-47.1 [facility] Comment on above: Performed By: #### C P, IPF, CDP #### [facility] [address] [place], [place] [phone] Desizing Machine Operator Head End: Jimmy Sanders MD Hemoglobin (Bld) [Mass/Vol] 14.3 g/dL Normal 11.9-15.1 [facility] Comment on above: Performed By: #### C P, IPF, CDP #### [facility] [address] [place], [place] [id number] Desizing Machine Operator Head End: Jimmy Sanders MD MCH (RBC) [Entitic mass] 25.2 pg Normal 25.2-33.5 [facility] Comment on above: Performed By: #### C P, IPF, CDP #### [address] [place] [id number] Desizing Machine Operator Head End: Jimmy Sanders MD MCHC (RBC) [Mass/Vol] 31.5 g/dL Normal 28.4-34.8 [facility] Comment on above: Performed By: #### C P, IPF, CDP #### [address] [place], [place] [phone] Desizing Machine Operator Head End: Jimmy Sanders MD MCV (RBC) [Entitic vol] 79.9 fL Low 82.6-102.9 [facility] Comment on above: Performed By: #### C P, IPF, CDP #### [address] [place] [facility] Desizing Machine Operator Head End: Jimmy Sanders MD NRBC Automated 0.0 per 100 WBC Normal 0.0 [facility] Comment on above: Performed By: #### C P, IPF, CDP #### [address] [place] [address] Desizing Machine Operator Head End: Jimmy Sanders MD Platelet Count See Reflexed IPF Result Normal 138-453 [facility] Comment on above: Performed By: #### C P, IPF, CDP #### [address] [place] [address] Desizing Machine Operator Head End: Jimmy Sanders MD RBC (Bld) [#/Vol] 5.68 10*6/uL High 3.95-5.11 [facility] Comment on above: Performed By: #### C P, IPF, CDP #### [facility] [address] [place] [address] Desizing Machine Operator Head End: Jimmy Sanders MD WBC (Bld) [#/Vol] 11.0 10*3/uL Normal 3.5-11.3 [facility] Comment on above: Performed By: #### C P, IPF, CDP #### [facility] [address] [place] [address] Desizing Machine Operator Head End: Jimmy Sanders MD Abs. Basophil 0.00 k/uL Normal 0.0-0.2 [facility] Comment on above: Performed By: #### C P, CDP #### [facility] [address] [place], [place] [phone] Desizing Machine Operator Head End: Jimmy Sanders MD Abs.Neutrophil (Seg) 8.40 k/uL High 2.5-7.0 [facility] Comment on above: Performed By: #### C P, CDP #### [facility] [address] [place], [place] [phone] Desizing Machine Operator Head End: Jimmy Sanders MD Auto Diff Performed YES Normal [facility] Comment on above: Performed By: #### C P, CDP #### [facility] [address] [place] [address] Desizing Machine Operator Head End: Jimmy Sanders MD Basophils/100 WBC (Bld) 0 % Normal 0-2 [facility] Comment on above: Performed By: #### C P, CDP #### [facility] [address] [place], [place] [phone] Desizing Machine Operator Head End: Jimmy Sanders MD Eosinophils (Bld) [#/Vol] 0.00 10*3/uL Normal 0.0-0.4 [facility] Comment on above: Performed By: #### C P, CDP #### [facility] [address] [place], [place] [phone] Desizing Machine Operator Head End: Jimmy Sanders MD Eosinophils/100 WBC (Bld) 0 % Normal 0-5 [facility] Comment on above: Performed By: #### C P, CDP #### [facility] [address] [place] [phone] Desizing Machine Operator Head End: Jimmy Sanders MD Erythrocyte distribution width (RBC) [Ratio] 13.7 % Normal 12.1-15.2 [facility] Comment on above: Performed By: #### C P, CDP #### [facility] [address] [place] [phone] Desizing Machine Operator Head End: Jimmy Sanders MD Hematocrit (Bld) [Volume fraction] 40.7 % Normal 36-46 [facility] Comment on above: Performed By: #### C P, CDP #### [facility] [address] [place] [phone] Desizing Machine Operator Head End: Jimmy Sanders MD Hemoglobin (Bld) [Mass/Vol] 13.3 g/dL Normal 12.0-16.0 [facility] Comment on above: Performed By: #### C P, CDP #### [facility] [address] [place], [place] [phone] Desizing Machine Operator Head End: Jimmy Sanders MD Lymphocytes (Bld) [#/Vol] 3.20 10*3/uL Normal 1.0-4.8 [facility] Comment on above: Performed By: #### C P, CDP #### [facility] [address] [place] [address] Desizing Machine Operator Head End: Jimmy Sanders MD Lymphocytes/100 WBC (Bld) 25 % Normal 15-40 [facility] Comment on above: Performed By: #### C P, CDP #### [facility] [address] [place] [address] Desizing Machine Operator Head End: Jimmy Sanders MD MCH (RBC) [Entitic mass] 24.4 pg Low 26-34 [facility] Comment on above: Performed By: #### C P, CDP #### [facility] [address] [place] [address] Desizing Machine Operator Head End: Jimmy Sanders MD MCHC (RBC) [Mass/Vol] 32.7 g/dL Normal 31-37 [facility] Comment on above: Performed By: #### C P, CDP #### [facility] [address] [place] [address] Desizing Machine Operator Head End: Jimmy Sanders MD MCV (RBC) [Entitic vol] 74.5 fL Low 80-100 [facility] Comment on above: Performed By: #### C P, CDP #### [facility] [address] [place] [address] Desizing Machine Operator Head End: Jimmy Sanders MD Monocytes (Bld) [#/Vol] 0.80 10*3/uL Normal 0.0-1.0 [facility] Comment on above: Performed By: #### C P, CDP #### [facility] [address] [place] [address] Desizing Machine Operator Head End: Jimmy Sanders MD Monocytes/100 WBC (Bld) 6 % Normal 4-8 [facility] Comment on above: Performed By: #### C P, CDP #### [facility] [address] [place] [address] Desizing Machine Operator Head End: Jimmy Sanders MD Neutrophil (Seg) 69 % Normal 47-75 [facility] Comment on above: Performed By: #### C P, CDP #### [facility] [address] [place] [address] Desizing Machine Operator Head End: Jimmy Sanders MD Platelets (Bld) [#/Vol] 376 10*3/uL Normal 140-450 [facility] Comment on above: Performed By: #### C P, CDP #### [facility] [address] [place] [address] Desizing Machine Operator Head End: Jimmy Sanders MD RBC (Bld) [#/Vol] 5.46 10*6/uL High 4.0-5.2 [facility] Comment on above: Performed By: #### C P, CDP #### [facility] [address] [place] [address] Desizing Machine Operator Head End: Jimym Sanders MD WBC (Bld) [#/Vol] 12.4 10*3/uL High 3.5-11.0 [facility] Comment on above: Performed By: #### C P, CDP #### [facility] [address] [place] [phone] Desizing Machine Operator Head End: Jimmy Sanders MD [facility] 2022 Albumin [Mass/Vol] 4.5 g/dL 3.5 - 5.2 g/dL [facility] Albumin/Globulin [Mass ratio] 1.2 {ratio} 1.0 - 2.5 [facility] ALP (Bld) [Catalytic activity/Vol] 87 U/L 35 - 104 U/L [facility] ALT [Catalytic activity/Vol] 53 U/L High 5 - 33 U/L [facility] Anion gap [Moles/Vol] 11 mmol/L 9 - 17 mmol/L [facility] AST [Catalytic activity/Vol] 31 U/L NINF - 32 U/L [facility] Bilirubin [Mass/Vol] 0.4 mg/dL 0.3 - 1.2 mg/dL [facility] Calcium [Mass/Vol] 9.1 mg/dL 8.6 - 10. 4 mg/dL [facility] Chloride [Moles/Vol] 100 mmol/L 98 - 107 mmol/L [facility] CO2 [Moles/Vol] 24 mmol/L 20 - 31 mmol/L [facility] Creatinine [Mass/Vol] 0.52 mg/dL 0.50 - 0.90 mg/dL [facility] GFR/1.73 sq M.predicted MDRD (S/P/Bld) [Vol rate/Area] - PINF [facility] Comment on above: Effective Mar 04, 2022 [...] [Mass/Vol] 80 mg/dL 70 - 99 mg/dL [facility] Interpretation and review of laboratory results Abnormal [facility] Potassium [Moles/Vol] 3.6 mmol/L Low 3.7 - 5.3 mmol/L [facility] Protein [Mass/Vol] 8.3 g/dL 6.4 - 8.3 g/dL [facility] Sodium [Moles/Vol] 135 mmol/L 135 - 144 mmol/L [facility] Urea nitrogen (BldV) [Mass/Vol] 8 mg/dL 6 - 20 mg/dL [facility] Urea nitrogen/Creatinine (Bld) [Mass ratio] 15 9 - 20 [facility] CT ABDOMEN PELVIS W IV CONTR Nilsa [...] Rodriguez Jr., MD 03/28/22 Final result Normal [facility] CT ABDOMEN PELVIS W IV CONTR AST Additional Contrast? Radiologist Recommendation (IV contrast)on 2022 Acute appendicitis. Radiology staff (Lori RT) will call Dr. Mathis with stat results. [facility] EXAMINATION: CT ABDOMEN PELVIS W IV CONTRAST, [...] glands, kidneys, retroperitoneum, uterus, ovaries and bladder. [facility] Silvestre Rodriguez Jr., MD - [...] will call Dr. Mathis with stat results. [facility] Work Phone: Radiology Study observation (narrative) [facility] [employer] Phone: CT ABDOMEN PELVIS W IV CONTR AST Additional Contrast? Radiologist Recommendation (IV contrast)Ordered By: Silvestre Rodriguez on 2022 [facility] [employer] Work Phone: Comp Metabolic Profon 2021 Albumin [Mass/Vol] 4.5 g/dL Normal 3.5-5.2 [facility] Comment on above: Performed By: #### C P, IPF, CDP #### [address] [place], [place] [phone] Desizing Machine Operator Head End: Jimmy Sanders MD Albumin/Glob Ratio 1.2 Normal 1.0-2.5 [facility] Comment on above: Performed By: #### C P, IPF, CDP #### [facility] [address] [place] [address] [place] [address] Desizing Machine Operator Head End: Jimmy Sanders MD Alkaline Phos 87 U/L Normal 35-104 [facility] Comment on above: Performed By: #### C P, IPF, CDP #### [address] [place], [place] [phone] Desizing Machine Operator Head End: Jimmy Sanders MD ALT [Catalytic activity/Vol] 53 U/L High 5-33 [facility] Comment on above: Performed By: #### C P, IPF, CDP #### [facility] [address] [place] [address] Desizing Machine Operator Head End: Jimmy Sanders MD Anion gap [Moles/Vol] 11 mmol/L Normal 9-17 [facility] Comment on above: Performed By: #### C P, IPF, CDP #### [facility] [address] [place] [address] [place] [address] Desizing Machine Operator Head End: Jimmy Sanders MD AST [Catalytic activity/Vol] 31 U/L Normal <32 [facility] Comment on above: Performed By: #### C P, IPF, CDP #### [facility] [address] [place], [place] [phone] Desizing Machine Operator Head End: Jimmy Sanders MD Bilirubin [Mass/Vol] 0.4 mg/dL Normal 0.3-1.2 [facility] Comment on above: Performed By: #### C P, IPF, CDP #### [facility] [address] [place], [place] [phone] Desizing Machine Operator Head End: Jimmy Sanders MD BUN/CRE Ratio 15 Normal 9-20 [facility] Comment on above: Performed By: #### C P, IPF, CDP #### [facility] [address] [place] [address] Desizing Machine Operator Head End: Jimmy Sanders MD Calcium [Mass/Vol] 9.1 mg/dL Normal 8.6-10.4 [facility] Comment on above: Performed By: #### C P, IPF, CDP #### [facility] [address] [place], [place] [phone] Desizing Machine Operator Head End: Jimmy Sanders MD Chloride [Moles/Vol] 100 mmol/L Normal 98-107 [facility] Comment on above: Performed By: #### C P, IPF, CDP #### [facility] [address] [place], [place] [phone] Desizing Machine Operator Head End: Jimmy Sanders MD CO2 [Moles/Vol] 24 mmol/L Normal 20-31 [facility] Comment on above: Performed By: #### C P, IPF, CDP #### [facility] [address] [place] [address] Desizing Machine Operator Head End: Jimmy Sanders MD Creatinine [Mass/Vol] 0.52 mg/dL Normal 0.50-0.90 [facility] Comment on above: Performed By: #### C P, IPF, CDP #### [facility] [address] [place] [address] Desizing Machine Operator Head End: Jimmy Sanders MD GFR/1.73 sq M.predicted among non-blacks MDRD (S/P/Bld) [Vol rate/Area] mL/min/{1.73_m2} Normal >60 [facility] Comment on above: Result Comment: Effective Mar [...] By: #### C P IPF, CDP #### [facility] [address] [place] [address] Desizing Machine Operator Head End: Jimmy Sanders MD Glucose [Mass/Vol] 80 mg/dL Normal 70-99 [facility] Comment on above: Performed By: #### C PJERRY, CDP #### [facility] [address] [place] [address] Desizing Machine Operator Head End: Jimmy Sanders MD Potassium [Moles/Vol] 3.6 mmol/L Low 3.7-5.3 [facility] Comment on above: Performed By: #### C P, IPF, CDP #### [facility] [address] [place] [address] Desizing Machine Operator Head End: Jimmy Sanders MD Protein [Mass/Vol] 8.3 g/dL Normal 6.4-8.3 [facility] Comment on above: Performed By: #### C P, IPF, CDP #### [facility] [address] [place], [place] [phone] Desizing Machine Operator Head End: Jimmy Sanders MD Sodium [Moles/Vol] 135 mmol/L Normal 135-144 [facility] Comment on above: Performed By: #### C P, IPF, CDP #### [facility] [address] [place], [place] [phone] Desizing Machine Operator Head End: Jimmy Sanders MD Urea nitrogen [Mass/Vol] 8 mg/dL Normal 6-20 [facility] Comment on above: Performed By: #### C P, IPF, CDP #### [facility] [address] [place], [place] [phone] Desizing Machine Operator Head End: Jimmy Sanders MD Albumin [Mass/Vol] 4.3 g/dL Normal 3.5-5.2 [facility] Comment on above: Performed By: #### C P, CDP #### [facility] [address] [place] [address] Desizing Machine Operator Head End: Jimmy Sanders MD Alkaline Phos 84 U/L Normal 35-104 [facility] Comment on above: Performed By: #### C P, CDP #### [facility] [address] [place] [address] Desizing Machine Operator Head End: Jimmy Sanders MD ALT [Catalytic activity/Vol] 52 U/L High 5-33 [facility] Comment on above: Performed By: #### C P, CDP #### [facility] [address] [place] [address] Desizing Machine Operator Head End: Jimmy Sanders MD Anion gap [Moles/Vol] 11 mmol/L Normal 9-17 [facility] Comment on above: Performed By: #### C P, CDP #### [facility] [address] [place] [address] Desizing Machine Operator Head End: Jimmy Sanders MD AST [Catalytic activity/Vol] 32 U/L High <32 [facility] Comment on above: Performed By: #### C P, CDP #### [facility] [address] [place] [address] Desizing Machine Operator Head End: Jimmy Sanders MD Bilirubin [Mass/Vol] 0.4 mg/dL Normal 0.30-1.20 [facility] Comment on above: Performed By: #### C P, CDP #### [facility] [address] [place], [place] [phone] Desizing Machine Operator Head End: Jimmy Sanders MD BUN/CRE Ratio 15 Normal 9-20 [facility] Comment on above: Performed By: #### C P, CDP #### [facility] [address] [place], [place] [phone] Desizing Machine Operator Head End: Jimmy Sanders MD Calcium [Mass/Vol] 9.1 mg/dL Normal 8.6-10.4 [facility] Comment on above: Performed By: #### C P, CDP #### [facility] [address] [place], [place] [id number] Desizing Machine Operator Head End: Jimmy Sanders MD Chloride [Moles/Vol] 101 mmol/L Normal 98-107 [facility] Comment on above: Performed By: #### C P, CDP #### [facility] [address] [place], [place] [id number] Desizing Machine Operator Head End: Jimmy Sanders MD CO2 [Moles/Vol] 26 mmol/L Normal 20-31 [facility] Comment on above: Performed By: #### C P, CDP #### [facility] [address] [place], [place] [id number] Desizing Machine Operator Head End: Jimmy Sanders MD Creatinine [Mass/Vol] 0.60 mg/dL Normal 0.50-0.90 [facility] Comment on above: Performed By: #### C P, CDP #### [facility] [address] [place], [place] [id number] Desizing Machine Operator Head End: Jimmy Sanders MD GFR/1.73 sq M.predicted among non-blacks MDRD (S/P/Bld) [Vol rate/Area] mL/min/{1.73_m2} Normal >60 [facility] Comment on above: Result Comment: Effective Mar [...] Performed By: #### C P, CDP #### [facility] [address] [place] [address] Desizing Machine Operator Head End: Jimmy Sanders MD Glucose [Mass/Vol] 90 mg/dL Normal 70-99 [facility] Comment on above: Performed By: #### C P, CDP #### [facility] [address] [place] [address] Desizing Machine Operator Head End: Jimmy Sanders MD Potassium [Moles/Vol] 4.1 mmol/L Normal 3.7-5.3 [facility] Comment on above: Performed By: #### C P, CDP #### [facility] [address] [place] [address] Desizing Machine Operator Head End: Jimmy Sanders MD Protein [Mass/Vol] 7.9 g/dL Normal 6.4-8.3 [facility] Comment on above: Performed By: #### C P, CDP #### [facility] [address] [place] [address] Desizing Machine Operator Head End: Jimmy Sanders MD Sodium [Moles/Vol] 138 mmol/L Normal 135-144 [facility] Comment on above: Performed By: #### C P, CDP #### [facility] [address] [place] [address] Desizing Machine Operator Head End: Jimmy Sanders MD Urea nitrogen [Mass/Vol] 9 mg/dL Normal 6-20 [facility] Comment on above: Performed By: #### C P, CDP #### [facility] [address] [place] [address] Desizing Machine Operator Head End: Jimmy Sanders MD [facility] Metabolic Pane [facility] 2022 Albumin [Mass/Vol] 4.3 g/dL 3.5 - 5.2 g/dL [facility] ALP (Bld) [Catalytic activity/Vol] 84 U/L 35 - 104 U/L [facility] ALT [Catalytic activity/Vol] 52 U/L High 5 - 33 U/L [facility] Anion gap [Moles/Vol] 11 mmol/L 9 - 17 mmol/L [facility] AST [Catalytic activity/Vol] 32 U/L High NINF - 32 U/L [facility] Bilirubin [Mass/Vol] 0.4 mg/dL 0.30 - 1.20 mg/dL [facility] Calcium [Mass/Vol] 9.1 mg/dL 8.6 - 10. 4 mg/dL [facility] Chloride [Moles/Vol] 101 mmol/L 98 - 107 mmol/L [facility] CO2 [Moles/Vol] 26 mmol/L 20 - 31 mmol/L [facility] Creatinine [Mass/Vol] 0.6 mg/dL 0.50 - 0.90 mg/dL [facility] GFR/1.73 sq M.predicted MDRD (S/P/Bld) [Vol rate/Area] - PINF [facility] Comment on above: Effective Mar 04, 2022 [...] [Mass/Vol] 90 mg/dL 70 - 99 mg/dL [facility] Interpretation and review of laboratory results Abnormal [facility] Potassium [Moles/Vol] 4.1 mmol/L 3.7 - 5.3 mmol/L [facility] Protein [Mass/Vol] 7.9 g/dL 6.4 - 8.3 g/dL [facility] Sodium [Moles/Vol] 138 mmol/L 135 - 144 mmol/L [facility] Urea nitrogen (BldV) [Mass/Vol] 9 mg/dL 6 - 20 mg/dL [facility] Urea nitrogen/Creatinine (Bld) [Mass ratio] 15 9 - 20 [facility] HCG, ,Urineon 03-28 Beta HCG ( test) Ql (U) Negative Normal NEG [facility] Comment on above: Result Comment: Spec imens with hCG levels near the threshold of the test (25 mIU/mL) may give a negative or indeterminate result. In such cases, another test should be performed with a new specimen in 48-72 hours. If early is suspected clinically in this setting, correlation with quantitative serum b-hCG level is suggested. [facility] has confirmed the use of plasma for this test. This has not been cleared or approved by the U.S. Food and Drug Administration. The FDA has determined that such clearance is not necessary. Performed By: #### U ZULMA Song [facility] #### [facility] [address] [place] [address] Desizing Machine Operator Head End: Jimmy Sanders MD Immature Platelet Fractionon 2022 Platelet, Fluorescence 353 [facility] Platelet, Immature Fraction 2.5 % 1.1 - 10.3 % [facility] Lactic Acidon 2022 Lactate [Moles/Vol] 0.9 mmol/L Normal 0.5-2.2 [facility] Comment on above: Performed By: #### L ACTIC #### [facility] [address] [place] [address] Desizing Machine Operator Head End: Jimmy Sanders MD Lactate [Moles/Vol] 0.9 mmol/L 0.5 - 2. 2 mmol/L [facility] Microscopic Urinalysison Bacteria, UA 1+ Abnormal None [facility] Epithelial Cells UA 0 TO 2 [facility] Interpretation and review of laboratory results Abnormal [facility] RBC, UA 0 TO 2 [facility] WBC, UA 0 TO 2 [facility] PLT, Immature Fract.on 03-28 Platelet, Fluoresc. 353 k/uL Normal 138-453 [facility] Comment on above: Performed By: #### C P, IPF, CDP #### [facility] [address] [place], [place] [id number] Desizing Machine Operator Head End: Jimmy Sanders MD PLT, Immature Fract. 2.5 % Normal 1.1-10.3 [facility] Comment on above: Performed By: #### C P, IPF, CDP #### [facility] [address] [place] [address] Desizing Machine Operator Head End: Jimmy Sanders MD Urinalysison 2022 Bilirubin Urine Negative NEGATIVE [facility] Color, UA Yellow Yellow [facility] Glucose, Ur Negative NEGATIVE [facility] Interpretation and review of laboratory results Abnormal [facility] Ketones Ql (U) 2+ Abnormal NEGATIVE [facility] Leukocyte esterase Test strip Ql (U) Negative NEGATIVE [facility] Nitrite, Urine Negative NEGATIVE [facility] pH, UA 6.0 5.0 - 9.0 [facility] Protein, UA Negative NEGATIVE [facility] Specific [place], UA 1.020 1.010 - 1.020 [facility] Turbidity UA Clear Clear [facility] Urine Hgb 2+ Abnormal NEGATIVE [facility] Urobilinogen, Urine ELEVATED Abnormal Normal [facility] Urinalysis, Routineon 2021 Bilirubin, SemiQt,Ur Negative Normal NEG [facility] Comment on above: Performed By: #### U A, [facility]MA [facility] #### [facility] [address] [place] [address] [address] [place], [place] [phone] Desizing Machine Operator Head End: Jimmy Sanders MD Blood, Urine 2+ Abnormal NEG [facility] Comment on above: Performed By: #### U A, FAVIANO UHCG #### [facility] [address] [place] [address] [address] [place], [place] [id number] Desizing Machine Operator Head End: Jimmy Sanders MD Clarity (U) Clear Normal CLEAR [facility] Comment on above: Performed By: #### U A, UMTARIQO UHCG #### [facility] [address] [place] [address] [address] [place], [place] [id number] Desizing Machine Operator Head End: Jimmy Sanders MD Color (U) Yellow Normal YEL [facility] Comment on above: Performed By: #### U AZULMA UHCG #### [facility] [address] [place] [address] [address] [place], [place] [phone] Desizing Machine Operator Head End: Jimmy Sanders MD Glucose Ql (U) Negative Normal NEG [facility] Comment on above: Performed By: #### U AZULMA CG #### [address] [place], [place] [phone] Desizing Machine Operator Head End: Jimmy Sanders MD Ketones Ql (U) 2+ Abnormal NEG [facility] Comment on above: Performed By: #### U AZULMA UHCG #### [facility] [address] [place] [address] [address] [place], [place] [id number] Desizing Machine Operator Head End: Jimmy Sanders MD Leukocyte esterase Test strip Ql (U) Negative Normal NEG [facility] Comment on above: Performed By: #### U AZULMA UHCG #### [facility] [address] [place] [address] [address] [place], [place] [id number] Desizing Machine Operator Head End: Jimmy Sanders MD Nitrite,Ur Negative Normal NEG [facility] Comment on above: Performed By: #### U AFAVIANO UHCG #### [facility] [address] [place] [address] Dr[address] [place], [place] [phone] Desizing Machine Operator Head End: Jimmy Sanders MD PH,Ur 6.0 Normal 5.0-9.0 [facility] Comment on above: Performed By: #### U ZULMA Song CG #### [facility] [address] [place] [address] [place] [address] Desizing Machine Operator Head End: Jimmy Sanders MD Protein Ql (U) Negative Normal NEG [facility] Comment on above: Performed By: #### ZULMA Whitney [facility] #### [address] [place], [place] [id number] Desizing Machine Operator Head End: Jimmy Sanders MD Spec. [place],Ur 1.020 Normal 1.010-1.020 [facility] Comment on above: Performed By: #### ZULMA Whitney [facility] #### [facility] [address] [place] [address] [place] [address] Desizing Machine Operator Head End: Jimmy Sanders MD Urobilinogen,Ur ELEVATED Abnormal NORM [facility] Comment on above: Performed By: #### U ZULMA Song [facility] #### [facility] [address] [place] [address] [place] [address] Desizing Machine Operator Head End: Jimmy Sanders MD Urinalysis,Microon 2 Bacteria 1+ Abnormal NONE [facility] Comment on above: Performed By: #### U ZULMA Song [facility] #### [facility] [address] [place] [address] [address] [place], [place] [id number] Desizing Machine Operator Head End: Jimmy Sanders MD Epithelial cells LM Ql (Urine sed) 0 TO 2 Normal 0-25 [facility] Comment on above: Performed By: #### U AZULMA CG #### [facility] [address] [place] [address] [address] [place], [place] [phone] Desizing Machine Operator Head End: Jimmy Sanders MD Urine RBC's 0 TO 2 Normal 0-2 [facility] Comment on above: Performed By: #### U ZULMA Song [facility] #### [facility] [address] [place], [place] [id number] Desizing Machine Operator Head End: Jimmy Sanders MD Urine WBC's 0 TO 2 Normal 0-5 [facility] Comment on above: Performed By: #### U ZULMA Song [facility] #### [facility] [address] [place], [place] [id number] Desizing Machine Operator Head End: Jimmy Sanders MD Urine Preg (Lab)on 2 Beta HCG ( test) Ql (U) Negative NEGATIVE [facility] Comment on above: Specimens with hCG l evels near the threshold of the test (25 mIU/mL) may give a negative or indeterminate result. In such cases, another test should be performed with a new specimen in 48-72 hours. If early is suspected clinically in this setting, correlation with quantitative serum b-hCG level is suggested. [facility] has confirmed the use of plasma for this test. This has not been cleared or approved by the U.S. Food and Drug Administration. The FDA has determined that such clearance is not necessary. [facility] Vital Signs Date Time Vital Sign Value Performing Clinician Sol diallo 03-29-2022 19:30-0400 Body temperature 98.49 [degF] Johana Castillo MD Work Phone: [facility] 03-29-2022 19:30-0400 Diastolic blood pressure 79 mm[Hg] Johana Castillo MD Work Phone: [facility] 03-29-2022 19:30-0400 Heart rate 98 /min Johana Castillo MD Work Phone: [facility] 03-29-2022 19:30-0400 Respiratory rate 18 /min Johana Castillo MD Work Phone: [facility] 03-29-2022 19:30-0400 SaO2% (BldA) [Mass fraction] 94 % [facility]ana Castillo MD [facility] 03-29-2022 19:30-0400 Systolic blood pressure 118 mm[Hg] Johana Castillo MD Work Phone: [facility] [employer] 03-29-2022 08:07-0400 Body height 162.6 cm Johana Castillo MD Work Phone: [facility] [employer] 03-29-2022 04:16-0400 Body mass index (BMI) [Ratio] 41.5 kg/m2 Johana Castillo MD Work Phone: [facility] [employer] 03-29-2022 04:16-0400 Body weight 109.68 kg Johana Castillo MD Work Phone: [facility] Encounters Encounter Date Encounter Type Care Provider Facility Start: 2022 End: 03-29-2022 Emergency department patient visit Johana Castillo MD Work Phone: [facility] Comment on above: Acute appendicitis w ith generalized peritonitis, without abscess, unspecified whether gangrene present, unspecified whether perforation present (Primary Dx); Acute postoperative pain; Appendicitis, unspecified appendicitis type Start: 2022 End: 03-31-2022 ambulatory [facility] Start: 2022 End: 03-30-2022 Subsequent hospital visit by physician Donovan Cat Scan Room [facility] Laboratory Comment on above: RLQ abdominal pain [...] Subsequent hospital visit by physician Markel White [facility] Laboratory Comment on above: Suspected COVID-19 v [...] Author Start: 2023 Depression Screen Depression Screen [facility] Start: 12-28-2022 Screening for malign ant neoplasm of cervix [facility] Start: 04-05-2022 End: 04-05-2022 Patient encounter procedure 04/05/2022 Office Visit General Surgery Darrick Mello DO [address] [place] [address] [address] [place] [address] [facility] GENER[facility] Start: 03-29-2022 End: 03-29-2022 APPENDECTOMY LAPAROSCOPIC ROBOTIC APPENDECTOMY LAPAROSCOPIC ROBOTIC Appendicitis, unspecified appendicitis type 03/29/2022 3:33 PM EDT [facility] Start: 12-31-2021 Influenza vaccination Flu vaccine (# 1) [facility] Start: 02-01-2020 Influenza vaccination [facility] [place], [place] Start: 01-19-2020 DTaP/Tdap/Td vaccine (7 - Td or Tdap) DTaP/Tdap/Td vaccine (7 - Td or Tdap) [facility] Start: 01-19-2020 DTaP/Tdap/Td vaccine (7 - Td) DTaP/Tdap/Td vaccine (7 - Td) [place], [place] Start: 09-24-2019 End: 09-24-2019 Telemedicine 09/24/2019 Telemedicine Family Medicine GloriaethanMarkel, DO [address] [place] [address] [facility] Start: 2018 Cervical cancer screen [facility]ervical [facility] screen [place], [place] Start: 2018 Screening for malign ant neoplasm of cervix Cervical cancer screen [place], [place] Start: 2015 Hepatitis C screening Hepatitis C sc reen [facility] Start: 2013 Chlamydia screen Chlamydia screen [place], [place] Start: 2013 Screening for Chlamy sara trachomatis Chlamydia screen [place], [place] Start: 2012 HIV screen HIV screen [place], [place] Start: 2012 HIV screening HIV screen [facility] Start: 2008 HPV vaccine (1 - 2-d ose series) HPV vaccine (1 - 2-dose series) [facility] Start: 1998 Varicella vaccine (1 of 2 - 2-dose childhood series) Varicella vaccine (1 of 2 - 2-dose childhood series) [facility] Start: 1997 COVID-19 Vaccine (#1) COVID-19 Vacci ne (#1) [facility] End: 09-20-2019 Covid-19 Ambulatory Covid-19 Ambulatory Lab Routine Suspected Covid-19 Virus Infection 1 Occurrences starting 09/20/2019 until 09/20/2019 [place], [place] Comment on above: 1 Occurrences starti ng 09/20/2019 until 09/20/2019 Covid-19 Ambulatory Covid-19 Amb ulatory Lab Routine Suspected COVID-19 virus infection 09/20/2019 10:05 AM EDT [place] End: 12-29-2019 Cytopathology procedure, preparation of smear, genital source PAP Smear Lab Routine Cervical cancer screening 1 Occurrences starting 12/29/2019 until 12/29/2019 [place], [place] Comment on above: 1 Occurrences starti ng 12/29/2019 until 12/29/2019 End: 02-01-2020 Surgical Pathology Surgical Pathology Lab Routine LGSIL on Pap smear of cervix 1 Occurrences starting 02/01/2020 until 02/01/2020 [place], [place] Comment on above: 1 Occurrences starti ng 02/01/2020 until 02/01/2020 Surgical Pathology Surgical Path ology Lab Routine Appendicitis, unspecified appendicitis type Release Upon Ordering for 1 Occurrences starting 03/29/2022 [employer] Phone: Comment on above: Release Upon Orderin g for 1 Occurrences starting 03/29/2022 End: 03-29-2022 SURGICAL PATHOLOGY REPORT SURGICAL PATHOLOGY REPORT Lab Routine Once for 1 Occurrences starting 03/29/2022 until 03/29/2022 [facility] [facility] Phone: Comment on above: Once for 1 Occurrenc es starting 03/29/2022 until 03/29/2022 Immunizations Immunization Date Immunization Notes Care Provider Zina moon 01-18-2010 tetanus toxoid, redu quincy diphtheria toxoid, and acellular pertussis vaccine, adsorbed [facility] 02-16-2003 diphtheria, tetanus toxoids and acellular pertussis vaccine [facility] [place] 02-16-2003 diphtheria, tetanus toxoids and acellular pertussis vaccine, unspecified formulation [facility] [place] 02-16-2003 measles, mumps and rubella virus vaccine [facility] [place] 02-16-2003 poliovirus vaccine, inactivated [facility] [place] 11-01-1998 diphtheria, tetanus toxoids and acellular pertussis vaccine [facility] [place] 11-01-1998 diphtheria, tetanus toxoids and acellular pertussis vaccine, unspecified formulation [facility] [place] 11-01-1998 haemophilus influenz ae type b vaccine, PRP-OMP conjugate [facility] [place] 11-01-1998 measles, mumps and rubella virus vaccine [facility] [place] 11-01-1998 trivalent poliovirus vaccine, live, oral [facility] [place] 1997 diphtheria, tetanus toxoids and acellular pertussis vaccine [facility] [place] 1997 diphtheria, tetanus toxoids and acellular pertussis vaccine, unspecified formulation [facility] [place] 1997 haemophilus influenz ae type b vaccine, PRP-OMP conjugate [facility] [place] 1997 hepatitis B vaccine, pediatric or pediatric/adolescent dosage [facility] [place] 1997 diphtheria, tetanus toxoids and acellular pertussis vaccine [facility] [place] 1997 diphtheria, tetanus toxoids and acellular pertussis vaccine, unspecified formulation [facility] [place] 1997 haemophilus influenz ae type b vaccine, PRP-OMP conjugate [facility] [place] 1997 poliovirus vaccine, inactivated [facility] [place] 1997 diphtheria, tetanus toxoids and acellular pertussis vaccine [facility] 1997 diphtheria, tetanus toxoids and acellular pertussis vaccine, unspecified formulation [facility] [place] 1997 haemophilus influenz ae type b vaccine, PRP-OMP conjugate [facility] [place] 1997 poliovirus vaccine, inactivated [facility] [place] 1997 hepatitis B vaccine, pediatric or pediatric/adolescent dosage [facility] [place] 1997 hepatitis B vaccine, pediatric or pediatric/adolescent dosage [facility] [place] Payers Date Payer Category Payer Unknown [id number] 2019 Private Health Insurance [facility] CHOICE PLU [id number] 2019-Present [phone] [address] [place] [address] [id number] 2019 Private Health Insurance [facility] CHOICE [employer]U [id number] 2019-Present [phone] [address] [place] [address] [id number] 2015 Private Health Insurance [facility] - OPTIONS xxxxxxxxx 2015-Present [phone] [address] [place] [address] xxxxxxxxx [id number] 1997 Unknown [id number] 1997 Unknown [id number] 1997 Unknown [id number] 1997 Unknown [id number] 1997 Unknown [id number] Social History Date Type Detail Facility Start: 09-20-2019 End: 2022 Tobacco smoking status NHIS Never smoker [facility] Start: 09-20-2019 End: 03-29-2022 Alcohol intake Current non-drinker of alcohol (finding) [place], [place] Start: 1997 Sex Assigned At [facility] [place] Exposure to SARS-CoV -2 (event) Unable to assess [employer] ALESSANDRA Start: 12-29-2019 End: 2022 Tobacco use and exposure Never used [employer] O ALESSANDRA Banda Start: 2022 History SDOH Alcohol Frequency 1 [employer] Work Phone: Start: 2022 History SDOH Alcohol Std Drinks 0 [employer] Work Phone: Start: 2022 History SDOH Financial 5 [employer] Phone: Start: 03-18-2022 End: 2022 Exposure to SARS-CoV-2 (event) Not sure [employer] History of Present illness Narrative 03-29-2022 Deysi Leahy RN - 03/29/2022 9:30 PM Vargas Leahy RN - 03/29/2022 6:30 PM Blaine Tran RN - 03/29/2022 6:02 PM Vargas Leahy RN - 03/29/2022 6:00 PM EDT Note Date & Type Note Facility 03-29-2022 History of Present illness Narrative Discharge instructions gone over with patient at this time. All questions answered. Patient wheeled to [facility] at this time. Seal Extrusion Operator at bedside at this time to perform [...] needs at this time Yunier Collins RD, LD Contact: [phone] Pt. Is resting in bed at this [...] at sink as well as chlorhexidine soap. Seal Extrusion Operator educated patient on need for chlorhexidine surgical wash prior to going down for surgery. Patient is comfortable in bed and denies any needs. Patient and mother deny any further questions at this time. Vital signs and assessment completed and charted. Navigator complete. Patient educated cement or concrete finishing supervisor light, bed, lights, and room. Seal Extrusion Operator gone over plan of care with patient. Patient aware of NPO status. Mouth moisturizer spray given to patient if needed. Patient, mother and fiance aware of unknown time for surgery tomorrow as of right now; will update patient of time if tag writer finds out at any time. Patient is alert and orientated. Patient is stable on feet and capable of moving about in the room independently. Patient encouraged to call out if patient is feeling lightheadness, unsteady or is in need of any assistance. Urine hat placed into toilet. Patient arrived to [facility], room 316, at this time via wheelchair. Patient independently ambulated from wheelchair to bed. Patient is alert and orientated and on room air. Weight was obtained. Patient arrived in personal clothes will have patient put on hospital gown. documented in this encounter [employer] Phone: Hospital Discharge instructions 03-29-2022 Discharge Instructions Note Date & Type Note Facility 03-29-2022 Hospital Discharg e instructions Darrick Mello DO - 03/29/2022 3:44 PM EDT POSTOP INSTRUCTIONS [...] nausea or vomiting. documented in this encounter [employer] Phone: Evaluation note Note Date & Type Note Facility Evaluation note Diagnosis RLQ abdominal pain Abdominal pain, right lower quadrant documented in this encounter [employer] Phone: Evaluation note Note Date & Type Note Facility Evaluation note Diagnosis Acute appendicitis with generalized peritonitis, without abscess, unspecified whether gangrene present, unspecified whether perforation present Acute postoperative pain Other acute postoperative pain Appendicitis, unspecified appendicitis type Acute appendicitis Acute appendicitis without mention of peritonitis documented in this encounter [employer] Phone: Evaluation note Note Date & Type Note Facility Evaluation note Diagnosis RLQ abdominal pain Abdominal pain, right lower quadrant Abdominal pain, right lower quadrant documented in this encounter [employer] Phone: Assessments Diagnosis Suspected COVID-19 virus infection Diagnosis Cervical cancer screening Screening for malignant neoplasm of the cervix Diagnosis LGSIL on Pap smear of cervix Advance Directives No Advanced Directives Records FoundDocuments on File Type Date Recorded Patient Home Health Physical Therapist Expl anation Advance Directives and Living Will Power of Creative Intern Documents on File Type Date Recorded Patient Home Health Physical Therapist Expl anation ACP-Advance Directive ACP-Power of Creative Intern Latest Code Status on File Code Status Date Activated Date Inactivated Comments Full Code 03/29/2022 12:41 PM Latest Code Status on File Code Status Date Activated Date Inactivated Comments Full Code 03/29/2022 12:41 PM 03/29/2022 11:36 PM Reason for Referral Specialty Diagnoses / Procedures Referred By Contac t Referred To Contact Radiology Diagnoses RLQ abdominal pain Abdominal pain, right lower quadrant Procedures CT ABDOMEN PELVIS W IV CONTRAST Additional Contrast? Radiologist Recommendation (IV contrast) Mu Parra DO [address] [place] [address] Referral ID Status Reason Start Date Expiration Date Visits Re quested Visits Authorized [id number] Closed 2022 05/26/2022 1 1 Summary Purpose Family History No Family History Records FoundNo Family History Records Found Additional Source Comments Care Teams (unrecognized sec tion and content) Bed Spring Maker Relationship Specialty Start Date End Date Markel White DO [address] [place] [address] PCP - General Family Medicine 11/13/17 Bed Spring Maker Relationship Specialty Start Date End Date Markel White, DO [address] [place] [address] PCP - General Family Medicine 11/13/17 Bed Spring Maker Relationship Specialty Start Date End Date Markel White, DO [address] [place] [address] PCP - General Family Medicine 11/13/17 Reason for Visit (unrecogniz ed section and content) Reason Comments Abdominal Pain Started having RLQ a bd pain Friday night. CT done by pcp earlier today and showed appendicitis. Pt states she is nauseous but denies vomiting. Specialty Diagnoses / Procedures Referred By Mita mendoza Referred To Contact Diagnoses Appendicitis Acute appendicitis with generalized peritonitis, without abscess, unspecified whether gangrene present, unspecified whether perforation present Darrick Mello I, DO [address] [facility] [address] [place] [id number] [facility] [address] [place] [address] Referral ID Status Reason Start Date Expiration Date Visits Re quested Visits Authorized [id number] 1 1 Specialty Diagnoses / Procedures Referred By Mita mendoza Referred To Contact Radiology Diagnoses RLQ abdominal pain Abdominal pain, right lower quadrant Procedures CT ABDOMEN PELVIS W IV CONTRAST Additional Contrast? Radiologist Recommendation (IV contrast) Mu Parra, DO [address] [place] [address] Referral ID Status Reason Start Date Expiration Date Visits Re quested Visits Authorized [id number] Closed 2022 05/26/2022 1 1 Ordered Prescriptions [...] minutes 1922 (New Bag - Provider: Jyothi Magana, FABIANA)2121 (Stopped - Provider: Vanita Camarena RN) acetaminophen (TYLENOL) tablet 650 mg (COMPLETED) 650 mg, Oral, ONCE, 1 dose, On Fri03/29/22 at 1500, Maximum dose of acetaminophen is 4000 mg from all sources in 24 hours., Pre-op (day of surgery) 1501 (Given - Provid er: Quita Chase, FABIANA) dimenhyDRINATE (DRAMAMINE) tablet 50 mg (COMPLETED) 50 mg, Oral, ONCE, 1 dose, On Fri03/29/22 at 1500, Pre-op (day of surgery) 1501 (Given - Provid er: Quita Chase, FABIANA) docusate sodium (COLACE) capsule 100 mg 100 [...] specifically ordered. 192 (Given - Provider: Jyothi Magana, FABIANA) ondansetron (ZOFRAN) injection 4 mg (COMPLETED) 4 mg, IntraVENous, ONCE, 1 dose, On Mayra 03/28/22 at 1900 1921 (Given - Provider: Jyothi Magana, FABIANA) piperacillin-tazobactam (ZOSYN) 3,375 mg in dextrose 5 [...] RN)1312 (Stopped - Provider: Robyn Marquez RN)1418 (MAR Hold - Provider: Cora Autohold - Reason: Unreviewed Transfer Orders)1820 (MAR Unhold - Provider: Deysi Leahy, FABIANA)192 (New Bag - Provider: Deysi Leahy, FABIANA)1957 (Stopped - Provider: Deysi Leahy RN) Continuous Medication Order 03/27/2022 2022 03/29/2022 0.9 % sodium chloride infusion IntraVENous, at 100 mL/hr, CONTINUOUS, Starting on Fri03/29/22 at 1000 1027 (New Bag - Prov ider: Kirstin Clements RN)1418 (MAR Hold - Provider: Cora Autohold - Reason: Unreviewed Transfer Orders)182 (MAR Unhold - Provider: Deysi Leahy RN)2040 (Stopped - Provider: Deysi Leahy RN) PRN Medication Order 03/27/2022 2022 03/29/2022 bupivacaine-EPINEPHrine PF (MARCAINE-w/EPINEPHRINE) 0.5% -[id number] injection (CANCELED) PRN, Starting on 03/29/22 at 1650, Until Fri03/29/22 at 1700, Intra-op 1650 (Given - Provid er: Darrick Mello DO) HYDROcodone-acetaminophen (NORCO) 5-325 MG per tablet 1 tablet 1 tablet, Oral, EVERY 4 HOURS PRN, Starting on 03/29/22 at 1820, Until Discontinued, Pain Severe (7-10), [...] of each other unless specifically ordered. 1418 (MAR Hold - Pro vider: Mar Autohold - Reason: Unreviewed Transfer Orders)1819 (JUL Unhold - Provider: Deysi Leahy, FABIANA) ondansetron (ZOFRAN) injection 4 mg 4 mg, IntraVENous, EVERY 6 HOURS PRN, Starting on Mayra 03/28/22 at 1943, Until Discontinued, Nausea, Vomiting 1418 (MAR Hold - Pro vider: Mar Autohold - Reason: Unreviewed Transfer Orders)1819 (MAR Unhold - Provider: Deysi Leahy RN) INFORMATION [...] BE BASED ON THE PRIMARY CLINICAL RECORDS. [facility] [employer] [facility]. provides no warranty or guarantee of the accuracy or completeness of information in this document.
[2023-09-27 08:11] LABS: Progesterone 0.4 ng/mL (.)
== END 2023-09-25 16:04 | disposition home or self-care (01) ==
LOC: LAB 16:06
PROVIDERS: Visit Provider Obstetrics & Gynecology
DX: E28.2 Polycystic ovarian syndrome (principal)
CPT/HCPCS: 36415; 84144